=== PATIENT | male | born 1955 | race Caucasian/White ===

== ENCOUNTER 2018-09-17 11:31 | Observation (INO) ==
[2018-09-17] MEDS ORDERED: NS 500 ML IV ONE (11:53)
[2018-09-17 12:17] LABS: BASO# 0.03 X1000 (0.0-0.2); BASO% 0.3 % (0.0-0.8); EOS# 0.05 X1000 (0.0-0.7); EOS% 0.5 % (0.0-10.0); HEMATOCRIT 39.5 % (42.0-52.0); HEMOGLOBIN 13.3 g/dL (14.0-18.0); IMM GRAN# 0.04 X1000 (0.0-0.04); IMM GRAN% 0.4 % (0.0-0.5); LYMPH# 1.39 X1000 (1.2-3.4); LYMPH% 12.6 % (20.5-51.1); MCH 30.4 PG (27-31); MCHC 33.7 g/dL (33-37); MCV 90.2 FL (81-99); MONO# 0.96 X1000 (0.11-0.59); MONO% 8.7 % (1.7-9.3); MPV 9.9 FL (7.4-10.4); NEUT# 8.59 X1000 (1.4-6.5); NEUT% 77.5 % (42.2-75.2); PLT 255 X1000 (130-400); RBC 4.38 XMIL (4.7-6.1); WBC 11.06 X1000 (4.8-10.8)
[2018-09-17 12:36] LABS: ALBUMIN 3.7 g/dL (3.5-5.0); CALCIUM 9.2 mg/dL (8.8-10.2); CREATININE 1.6 mg/dL (0.7-1.2); POTASSIUM 5.2 mmol/L (3.5-5.1); TOTAL BILIRUBIN 0.3 mg/dL (0.20-1.00)
--- NOTE | 2018-09-17 13:21 | Diag Imaging Result Doc PS360 ---
EXAM: CHEST-2 VIEWS HISTORY: short of breath TECHNIQUE: Chest two views COMPARISON: 09/09/2015 FINDINGS: The lungs are well expanded. The heart is not enlarged. The vessels are not distended. There are no infiltrates. No pleural effusions. Scattered granuloma. IMPRESSION: No acute abnormality. Electronically signed by Dawit Sepulveda 09/17/2018 1:19 PM
[2018-09-17 14:15] LABS: URINE SOURCE CLEAN CATCH
[2018-09-17 14:20] LABS: BILIRUBIN URINE 2+ (NEGATIVE); BLOOD URINE NEGATIVE (NEGATIVE); KETONE URINE 1+(Small) mg/dL (NEGATIVE); LEUKOCYTES URINE 1+ (NEGATIVE); NITRITE URINE NEGATIVE (NEGATIVE); PROTEIN URINE 1+(30 mg/dL) mg/dL (NEGATIVE); SP GRAVITY URINE 1.025; UROBILINOGEN URINE 1 mg/dL
[2018-09-17 14:21] LABS: CLARITY CLEAR (CLEAR); COLOR YELLOW
--- NOTE | 2018-09-17 14:47 | Diag Imaging Result Doc PS360 ---
EXAM: CT ANGIOGRM PULMONARY ARTERIES HISTORY: difficulty breathing TECHNIQUE: Emergent CT of the chest with intravenous contrast. Pulmonary arterial protocol with MIP images. COMPARISON: 05/21/2016 FINDINGS: Normal opacification of the pulmonary arteries and their branches. No pulmonary emboli. No thoracic aortic aneurysm or dissection. No cardiomegaly. No pleural effusions. There are small calcified mediastinal and hilar nodes with multiple scattered granuloma. No lung mass. No bronchiectasis. No infiltrates. There are old rib fractures. IMPRESSION: There is evidence of a prior granulomatous infection. This exam was performed using automated exposure control, adjustment of mA or kV according to patient size, and/or use of iterative reconstruction technique. Electronically signed by Dawit Sepulveda 09/17/2018 2:45 PM
[2018-09-17] MEDS ORDERED: NS 1,000 ML IV ONE (15:16)
[2018-09-17] MEDS ORDERED: TYLENOL PO ONE (15:37)
--- NOTE | 2018-09-17 16:03 | PROVIDER DOCUMENTATION ---
This chart was entered by Clayton Sellers Scribe, acting as scribe for Aurelio Ayers MD. HPI-General Adult - General Chief Complaint: Chest Pain Stated Complaint: CHEST PAINS Time Seen by Provider: 09/17/18 11:39 Source: patient Allergies/Adverse Reactions: Patient Allergies Allergy/AdvReac Type Severity Reaction Status Date / Time codeine Allergy HIVES Verified 04/18/17 19:12 Sulfa (Sulfonamide Allergy ANAPHYLAXIS Verified 04/18/17 19:11 Antibiotics) Home Medications: Home Medication List Medication Instructions Recorded Confirmed Last Taken Type Insulin NPH Hum/Reg Insulin Hm 20 units SQ BID 05/27/18 08/18/18 08/17/18 History [Humulin 70/30 Kwikpen] Metformin [Glucophage] 1,000 mg PO BID 05/27/18 08/18/18 08/17/18 History Ursodiol 1 cap PO DAILY 05/27/18 08/18/18 08/17/18 History Acetaminophen/Diphenhydramine 1 ea PO Q6HR PRN #14 tab 05/28/18 08/18/18 08/17/18 Rx [Percogesic 325-12.5 mg Tablet] - History of Present Illness -Gen Adult Nature of Presenting Problems: Pt is a 62 y/o M present to the ED with right arm numbness, neck and headache with some chest pain that began today at 9am. He reports a mild SC 3 years ago prior to his gastric bypass. He reports a 200lb weight loss since his gastric bypass. Location of Pain/Injury: reports: neck, upper extremity (right arm numbness) Quality of Pain: reports: aching Severity: reports: mild Onset/Duration: reports: this morning Timing: reports: still present Context/Activities at Onset: reports: none Modifying Factors: improves with: nothing Associated Symptoms: reports: back/neck pain, chest pain, headaches. denies: dizziness, fever/chills, sinus congestion/drainage, shortness of breath Similar Symptoms Previously?: No Recently seen or treated by another doctor?: No Review of Systems - Adult - REVIEW OF SYSTEMS - ADULT Constitutional: denies: chills, fever Eyes: reports: no symptoms reported Ears, Nose, Mouth & Throat: denies: ear pain, throat pain Cardiovascular: reports: chest pain. denies: edema, palpitations Respiratory: denies: cough, shortness of breath, wheezing Gastrointestinal: denies: abdominal pain, nausea, vomiting Genitourinary: denies: dysuria, discharge Musculoskeletal: reports: neck pain. denies: back pain Integumentary: reports: no symptoms reported Neurological: reports: headache/migraines. denies: dizziness/vertigo Psychiatric: reports: no symptoms reported Endocrine: reports: no symptoms reported Hematologic/Lymphatic: reports: no symptoms reported Allergic/Immunologic: reports: no symptoms reported All Other Systems: Reviewed and Negative Past History - Adult - PAST MEDICAL HISTORY-ADULT Review of Records: reports: Old Records Reviewed, Nursing Assessment Review, Medications Reviewed Major Childhood Illnesses: reports: denies history Cardiovascular: reports: HTN, hyperlipidemia, SC Respiratory: reports: denies history Gastrointestinal: reports: denies history Obstetrical/Gynecological: reports: denies history Genitourinary: reports: denies history Musculoskeletal: reports: denies history Neurological: reports: denies history Psychiatric: reports: denies history Endocrine/Immune: reports: Diabetes Other Conditions: reports: denies history - PRIOR SURGERIES/PROCEDURES Surgical/Procedure History: reports: gastric bypass - IMMUNIZATION STATUS Childhood Immunizations: See Nurse Assessment Flu Vaccine: See Nurse Assessment - FAMILY HISTORY Family History: reviewed, not pertinent - SOCIAL HISTORY Smoking: non-smoker Living Situation: family Physical Exam-General - PHYSICAL EXAM-ADULT Initial Vital Signs Reviewed: Yes - CONSTITUTIONAL General Appearance: alert, no apparent distress, obese (morbid) - EYES Eyes: PERRL/EOMI, pink conjunctivae - HEAD, EARS, NOSE, MOUTH & THROAT HENMT: moist mucous membranes, normal ENT inspection, pharynx normal - NECK Neck: non-tender, full range of motion, supple, normal inspection - RESPIRATORY Respiratory: lungs clear, normal breath sounds, no pleuratic chest pain, no respiratory distress, no accessory muscle use - CARDIOVASCULAR Cardiovascular: normal peripheral pulses, regular rate, rhythm - GASTROINTESTINAL (ABDOMEN) Abdominal Exam: normal bowel sounds, soft, tenderness (diffuse tenderness) - MUSCULOSKELETAL Back Exam: normal inspection, no CVA tenderness, no vertebral tenderness Extremity: normal range of motion, non-tender, normal gait, normal inspection - SKIN Integumentary: normal color, normal turgor, warm/dry - NEUROLOGIC Neurologic: grossly normal, no motor/sensory deficits. negative: aphasia, facial droop, focal weakness, motor weakness - PSYCHIATRIC Psych/Mental Status: normal mood/affect, normal thought content, normal thought process, oriented x 3 Progress - PLAN OF CARE/RESULTS Progress/Plan/Lab Results: Vital Signs - 8 hr 09/17/18 11:36 09/17/18 11:39 Pulse Rate 89 88 Respiratory Rate 18 18 Blood Pressure 80/50 O2 Sat by Pulse Oximetry 90 L Result Diagrams: 09/17/18 12:05 09/17/18 12:05 - EKG 1 Time of EKG reading by physician:: 11:37 EKG Read and Signed by:: Aurelio Ayers EKG Interpretation (*Must complete 3 of following elements*): Abnormal Rate: 92 Rhythm: NSR Anita: left QRS: RBB - XRAY 1 XRAY: Bilateral XRAY Study: Chest Impression: Normal (EXAM: CHEST-2 VIEWS HISTORY: short of breath TECHNIQUE: Chest two views COMPARISON: 09/09/2015 FINDINGS: The lungs are well expanded. The heart is not enlarged. The vessels are not distended. There are no infiltrates. No pleural effusions. Scattered granuloma. IMPRESSION: No acute abnormality.) - CT/MRI 1 CT Study: Angiogram Impression: Normal (Signed EXAM: CT ANGIOGRM PULMONARY ARTERIES HISTORY: difficulty breathing TECHNIQUE: Emergent CT of the chest with intravenous contrast. Pulmonary arterial protocol with MIP images. COMPARISON: 05/21/2016 FINDINGS: Normal opacification of the pulmonary arteries and their branches. No pulmonary emboli. No thoracic aortic aneurysm or dissection. No cardiomegaly. No pleural effusions. There are small calcified mediastinal and hilar nodes with multiple scattered granuloma. No lung mass. No bronchiectasis. No infiltrates. There are old rib fractures. IMPRESSION: There is evidence of a prior granulomatous infection. This exam was performed using automated exposure control, adjustment of mA or kV according to patient size, and/or use of iterative reconstruction technique. Electronically signed by Dawit Sepulveda 09/17/2018 2:45 PM) - CONSULTS/PCP/HOSPITALIST Notification #1 *Consult/PCP/Hospitalist*: Hospitalist- Dr Greco Time Discussed: 15:15 Reason/Comments: admission Consult Disposition: Will see in ED Departure - Departure Date of Disposition Decision: 09/17/18 Time of Disposition Decision: 15:19 DIAGNOSIS: Renal insufficiency Chest pain Qualifiers: Chest pain type: unspecified Qualified Code(s): R07.9 - Chest pain, unspecified Disposition: ADMITTED INPATIENT 09 Certified Medical Emergency: Emergent Condition: Serious - Critical Care Note This patient required my direct & personal management of CC.: No Attestation - Physician/ FILIBERTO Attestation Patient care was provided by Advanced Practice Provider:: No The physician spent face to face time with patient:: Yes Advanced Practice Provider documentation review:: Supervising physician onsite and consulted in the evaluation and care of this patient. The physician did have a face to face encounter with the patient. This chart was documented by the indicated scribe, (Clayton Sellers Scribe) and accurately reflects the services I performed and decisions made by me, Aurelio Ayers MD, as attested by the provider's signature.
[2018-09-17] MEDS ORDERED: ZOFRAN IV PRN (16:26)
[2018-09-17] MEDS ORDERED: TYLENOL PO PRN (16:26)
[2018-09-17] MEDS: NS 1,000 ML IV SCH (16:53)
--- NOTE | 2018-09-17 18:16 | EKG Report ---
Test Performed on : 09/17/2018 11:37:39 AM Test Reason : Chest pain Blood Pressure : / mmHG Vent. Rate : 092 BPM Atrial Rate : 092 BPM P-R Int : 156 ms QRS Dur : 124 ms QT Int : 392 ms P-R-T Axes : 028 -72 033 degrees QTc Int : 484 ms Normal sinus rhythm. Left axis deviation Right bundle branch block Abnormal ECG When compared with ECG of 12-SEP-2015 01:51, Right bundle branch block is now present Criteria for Septal infarct are no longer present Unconfirmed Result
[2018-09-17] MEDS: HUMALOG (PARKWAY) SUBQ SCH ×2 (19:01→21:57)
[2018-09-17] MEDS: MORPHINE IV PRN (21:57)
--- NOTE | 2018-09-18 00:33 | HISTORY AND PHYSICAL ---
PRIMARY CARE PHYSICIAN: Dr. Menjivar. CHIEF COMPLAINT: Chest pain. HISTORY OF PRESENTING ILLNESS: This is a 62-year-old male who presents to [facility] ER with complaints of chest pain that began around 9 a.m. this morning. States it radiated from the center of his chest, down both arms, in his neck, and through to his shoulder blades. He had some associated nausea, diaphoresis. States he had an PR that was mild about 3 years ago. No stents were required. He has not had a stress test, but states that these symptoms feel very similar to what he had in the past. His workup in the emergency room showed a 1st set of cardiac enzymes with a troponin of 0.042. His BUN is 38 and creatinine of 1.6. He is mildly dehydrated with a little acute kidney injury. Urinalysis was negative. He had a little bump in his D-dimer at 0.77. We did a pulmonary arteriogram that showed only evidence of a prior granulomatous infection, but no pulmonary emboli, so he will be admitted for further evaluation and treatment. PAST MEDICAL HISTORY: Hypertension, hyperlipidemia, PR, and diabetes. PAST SURGICAL HISTORY: Gastric bypass, in which he has lost about 200 pounds since the surgery. FAMILY HISTORY: Reviewed and noncontributory. SOCIAL HISTORY: Currently lives with family. Denies any tobacco, alcohol, or illicit drug use. ALLERGIES: To codeine and sulfa. HOME MEDICATIONS: A current list needs to be obtained, reviewed, reconciled, and restarted as appropriate. We will place an order for nursing to update and confirm home medications. LABORATORY DATA: Showed a white blood cell count of 11.06, hemoglobin 13.3, hematocrit 39.5, platelets 255,000. D-dimer of 0.77. Sodium 136, potassium 5.2, chloride 100, CO2 of 22, BUN of 38, creatinine 1.6, glucose 254, lipase 14, troponin 0.042. Plasma lactate of 2.5. Urinalysis is negative. Chest x-ray showed no acute abnormality. Pulmonary arteriogram showed no evidence of prior granulomatous infection. REVIEW OF SYSTEMS: He denied any fever, chills, blurred vision, dizziness. He had substernal chest pain that radiated to his bilateral arms, neck and through to his shoulder blades, with some associated diaphoresis, nausea, shortness of breath. Denied any abdominal pain, constipation, diarrhea, burning or hurting with urination. PHYSICAL EXAMINATION: VITAL SIGNS: On arrival, his pulse was 89, respirations 18, blood pressure on arrival was 80/50, saturating 90% on room air. Currently, his blood pressure is up to 112/55, and he is saturating 97% on room air. GENERAL: This is a 62-year-old male, who is lying in the bed and answers questions appropriately. HEENT: Normocephalic, atraumatic. Normal ENT inspection. Oropharynx and nares are clear. Eyes: Pupils are equal, round, and reactive to light and accommodation. Extraocular movements are intact. NECK: Normal inspection. Normal range of motion. LUNGS: Clear to auscultation bilaterally with equal lung expansion and chest wall movement. HEART: With regular rate and rhythm. No murmurs, rubs, or gallops. ABDOMEN: Soft, nontender, nondistended. Bowel sounds are present x4 quadrants. MUSCULOSKELETAL: He has 5/5 strength x4 extremities. NEUROLOGICAL: The cranial nerves 2-12 appear grossly intact. ASSESSMENT: 1. Chest pain. 2. Hypertension. 3. Acute kidney injury. 4. Hypoxemia. PLAN: He will be admitted to the medical unit. Placed on telemetry. O2 per protocol. Placed on a diabetic diet. We will do serial cardiac enzymes and troponin's q.[address] on normal saline at 100 mL/h. Pattern blood sugars with sliding scale insulin, Zofran 4 mg IV q.4 hours p.r.n., Tylenol 650 mg p.o. q.6 hours p.r.n. We need to update and confirm home medications. He was ruled out for a PE. Further orders after seen by attending. Dictated by ANDREW Bernabe for Stephen Greco MD cc: ANDREW Bernabe MD Hiteshri S. Bhavsar, MD
[2018-09-18] MEDS: NS 1,000 ML IV SCH ×2 (01:39→11:56)
[2018-09-18 01:58] LABS: UR PROT RANDOM 8.1 mg/dL
--- NOTE | 2018-09-18 05:45 | PROGRESS NOTE ---
DATE: 09/18/2018 SUBJECTIVE: The patient presented with chest pain and also some numbness. I think there is some intellectual impairment. He is also status post gastric bypass. PHYSICAL EXAM: Lungs: No rales. Cardiovascular: Regular rate and rhythm. General: He has some degree of renal failure as well. PROBLEM LIST: 1. Chest pain. We will do serial enzymes and follow. Possibly obtain echo. 2. Acute kidney injury. Continue hydration. We will continue medications and follow. 3. Diabetes. Continue sliding scale, check A1c and follow closely. 4. Hypertension. Continue his regular medications and follow. This was a [id number] encounter note with ANDREW Bernabe. cc: Stephen Greco MD
[2018-09-18] MEDS: HUMALOG (PARKWAY) SUBQ SCH ×5 (05:58→21:08)
[2018-09-18] MEDS: MORPHINE IV PRN ×3 (06:14→22:58)
[2018-09-18 07:34] LABS: BASO# 0.03 X1000 (0.0-0.2); BASO% 0.5 % (0.0-0.8); EOS# 0.13 X1000 (0.0-0.7); EOS% 2.1 % (0.0-10.0); HEMATOCRIT 36.6 % (42.0-52.0); IMM GRAN# 0.01 X1000 (0.0-0.04); IMM GRAN% 0.2 % (0.0-0.5); LYMPH# 1.51 X1000 (1.2-3.4); LYMPH% 24.1 % (20.5-51.1); MCH 29.6 PG (27-31); MCHC 32.8 g/dL (33-37); MCV 90.4 FL (81-99); MONO# 0.58 X1000 (0.11-0.59); MONO% 9.3 % (1.7-9.3); NEUT% 63.8 % (42.2-75.2); PLT 244 X1000 (130-400); RBC 4.05 XMIL (4.7-6.1); RDW 12.9 % (11.5-14.5); WBC 6.26 X1000 (4.8-10.8)
[2018-09-18 07:49] LABS: AGAP 11; BUN 34 mg/dL (8-22); CALCIUM 8.4 mg/dL (8.8-10.2); CHLORIDE 102 mmol/L (98-107); COSMO 284; CREATININE 0.8 mg/dL (0.7-1.2); ESTIMATED GFR > 60; GLUCOSE 179 mg/dL (70-104); POTASSIUM 4.6 mmol/L (3.5-5.1); SODIUM 136 mmol/L (136-145); TCO2 24 mmol/L (25-35)
[2018-09-18 07:59] LABS: HEMOGLOBIN A1C 9.4 % (4.8-6.0)
[2018-09-18] MEDS: HEPARIN SUBQ SCH ×2 (08:25→21:08)
--- NOTE | 2018-09-18 09:10 | Diag Imaging Result Doc PS360 ---
EXAM: US RENAL 2 (RETROPER) COMPLETE HISTORY: armando/arf TECHNIQUE: Renal ultrasound COMPARISON: None. FINDINGS: The right kidney measures 10.8 x 4.7 x 5.0 cm. Normal renal echotexture and cortical thickness. No renal stone or hydronephrosis. No renal mass. The lower pole is partly obscured. The left kidney measures 11.6 x 5.9 x 5.6 cm. Normal renal echotexture and cortical thickness. No renal stone or hydronephrosis. No renal mass. The urinary bladder is not distended. IMPRESSION: Normal renal ultrasound. Electronically signed by Dawit Sepulveda 09/18/2018 9:08 AM
[2018-09-18] MEDS: GLUCOPHAGE PO SCH (16:23)
--- NOTE | 2018-09-18 17:36 | PROGRESS NOTE ---
DATE: 09/18/2018 SUBJECTIVE: Patient has no major complaints. OBJECTIVE: Blood pressure is 123/58, heart rate of 72, respiratory 18, temperature 98.8 degrees, 98% on 1 L.Cardiovascular: Regular rate and rhythm. Pulmonary: Bilateral breath sounds clear to auscultation. GI: Was soft, nontender, nondistended. Bowel sounds are positive. Extremities: No clubbing or cyanosis. Lymphatic: No peripheral edema. Neurological: Nonfocal. LABORATORY DATA: He has ruled out. White count 6, hemoglobin and hematocrit 12 and 36, glucose 237. A1c is 9.4. PROBLEM LIST: 1. Chest pain which is very atypical and I think he has some degree of intellectual impairment so I am not sure how accurate is but in any case patient is stable. He has got some old rib fractures, has no white count, they did a pulmonary angiogram which was negative, in any case we will do a echocardiogram and get a Cardiology opinion and follow. 2. Diabetes, continue follow blood sugars. 3. He is on Actigall. Unclear why he is on that, liver enzymes are okay, will get a right upper quadrant tomorrow follow. cc: Stephen Greco MD
[2018-09-18] MEDS: IMDUR PO SCH (19:03)
[2018-09-18] MEDS: ACTIGALL PO SCH (21:08)
[2018-09-19] MEDS: HUMALOG (PARKWAY) SUBQ SCH ×3 (06:14→16:48)
[2018-09-19 07:22] LABS: BASO# 0.02 X1000 (0.0-0.2); BASO% 0.4 % (0.0-0.8); EOS# 0.12 X1000 (0.0-0.7); EOS% 2.3 % (0.0-10.0); HEMOGLOBIN 10.9 g/dL (14.0-18.0); IMM GRAN# 0.01 X1000 (0.0-0.04); IMM GRAN% 0.2 % (0.0-0.5); LYMPH# 1.35 X1000 (1.2-3.4); LYMPH% 26.1 % (20.5-51.1); MCH 29.1 PG (27-31); MCHC 32.1 g/dL (33-37); MCV 90.7 FL (81-99); MONO% 7.7 % (1.7-9.3); MPV 9.9 FL (7.4-10.4); NEUT# 3.28 X1000 (1.4-6.5); NEUT% 63.3 % (42.2-75.2); PLT 228 X1000 (130-400); RBC 3.75 XMIL (4.7-6.1); RDW 12.9 % (11.5-14.5); WBC 5.18 X1000 (4.8-10.8)
[2018-09-19 07:30] LABS: AGAP 7; BUN 24 mg/dL (8-22); CALCIUM 8.3 mg/dL (8.8-10.2); CHLORIDE 101 mmol/L (98-107); COSMO 279; CREATININE 0.7 mg/dL (0.7-1.2); ESTIMATED GFR > 60; GLUCOSE 214 mg/dL (70-104); POTASSIUM 4.8 mmol/L (3.5-5.1); SODIUM 134 mmol/L (136-145); TCO2 26 mmol/L (25-35)
[2018-09-19] MEDS: NS 1,000 ML IV SCH (07:35)
[2018-09-19] MEDS: IMDUR PO SCH (08:38)
[2018-09-19] MEDS: GLUCOPHAGE PO SCH ×2 (08:38→16:48)
[2018-09-19] MEDS: HEPARIN SUBQ SCH (08:39)
[2018-09-19] MEDS: MORPHINE IV PRN ×2 (08:39→14:20)
[2018-09-19] MEDS: ACTIGALL PO SCH (08:40)
[2018-09-19] MEDS ORDERED: PRINIVIL PO SCH (09:00)
[2018-09-19] MEDS: CARAFATE PO SCH ×2 (11:19→15:24)
[2018-09-19] MEDS ORDERED: NS 1,000 ML IV SCH (14:19)
[2018-09-19] MEDS ORDERED: HEPARIN 25,000 UNITS/D5W 25,000 UNIT/250 ML IV.SOLN IV SCH (14:30)
[2018-09-19 14:42] VITALS: BP 124/64
--- NOTE | 2018-09-19 14:43 | EKG Report ---
Test Performed on : 09/19/2018 2:38:00 PM Test Reason : chest pain Blood Pressure : / mmHG Vent. Rate : 072 BPM Atrial Rate : 072 BPM P-R Int : 172 ms QRS Dur : 140 ms QT Int : 406 ms P-R-T Axes : 028 -58 014 degrees QTc Int : 444 ms Normal sinus rhythm. Left axis deviation Right bundle branch block Abnormal ECG When compared with ECG of 17-SEP-2018 11:37, (Unconfirmed) No significant change was found Unconfirmed Result
--- NOTE | 2018-09-19 14:52 | PROGRESS NOTE ---
DATE: 09/19/2018 SUBJECTIVE: Patient notes that he was told he had a slight WY in the past but has not gone through any workup. States he is still having chest pain. Notes that it radiates to both arms and both legs. Denies any nausea/vomiting. Denies any GI symptoms or symptoms. Denies any fevers or chills. PHYSICAL EXAMINATION: Vital Signs: Temperature 97.1 degrees, pulse 65, respiratory 18, BP 110/76. General: Patient is awake, currently in no distress. HEENT: Normocephalic, atraumatic. DICKSON. Neck: Supple. No JVD. CARDIOVASCULAR: Regular rate. Chest: Clear, nonlabored. Abdomen: Soft, nondistended, nontender. Extremities: Moves all extremities. Neurologic: No focal changes. Patient is awake, alert, oriented. ASSESSMENT: 1. Chest pain. 2. Diabetes. PLAN: We will continue patient in the hospital. At this point, we will have to complete cardiac workup to include a stress test as he states he has had an WY in the past but has had no workup. Unsure if this was a failure on his part to follow up or see in fact did have some workup, and he simply does not remember. We will try Carafate and see if this helps. cc: Jasen Badillo MD
[2018-09-19] MEDS ORDERED: ASPIRIN PO STA (14:56)
--- NOTE | 2018-09-19 15:18 | CARDIOLOGY CONSULTATION ---
DATE: 09/19/2018 CHIEF COMPLAINT: Chest pain. HISTORY OF PRESENT ILLNESS: A 62-year-old male presented to the hospital on 09/17/2018 at about 11:30 in the morning, stating that he was with his brother in [place] buying some groceries, and all of the sudden, he started having numbness in the right hand. This progressed over a period of time, and he ended up coming to the emergency room. When he came to the emergency room, he said that he was having chest discomfort. The chest discomfort continued basically without interruption throughout the course of a few hours. It seemed to wax and wane. They put a consultation for me to see him this morning. I was contacted through my service at 8:12 in the morning, and in the call, they said that the patient was having recurrent chest pain. Initially, his EKG showed sinus rhythm with right bundle branch block. His troponin levels where in the pope zone. The first one was 0.042, the next one 0.027, the last one 0.020. The patient's BUN and creatinine were elevated at the time of arrival. BUN was 38, creatinine 1.6. Subsequently, the BUN has improved to 24, creatinine is down to 0.7. The patient continues to have chest pain as we speak. The patient denies dyspnea. His brother is by the bedside. PAST MEDICAL HISTORY: Positive for diabetes mellitus for many years. He used to be on pills, and at some point, he was switch over to insulin. He has hypertension. He has hyperlipidemia. The patient used to be morbidly obese. He weighed up to 440 pounds. PAST SURGICAL HISTORY: Positive for gastric bypass surgery performed by Dr. Adam Morris a few years ago. He has lost nearly 200 pounds since the surgery. FAMILY HISTORY: Mother had a stroke. Father had a heart attack. SOCIAL HISTORY: He has never been . He is on disability. Lives by himself. Not a smoker or drinker. REVIEW OF SYSTEMS: The patient has difficulty getting around. He has to walk with a walker. His legs do not support him properly. He probably has polyneuropathy. He has had some intermittent episodes of chest pain, short lasting, in the past. HOME MEDICATIONS: Included: 1. Metformin 1000 twice a day. 2. Flomax 1 capsule at bedtime. 3 .Lisinopril 10 mg daily. 4. Calcium carbonate 1 capsule daily. 5. Insulin 70/30 as directed. (please look at MAR for details) ALLERGIES: Codeine and sulfa. PHYSICAL EXAMINATION: Vital Signs: Blood pressure 110/76, temperature is 97.8 degrees, pulse 65, respirations 18. His weight standing up on a standing scale is 278.6 pounds. General: He is awake, alert, in no distress. HEENT: Unremarkable. Chest: Clear to auscultation and percussion. Heart: Heart sounds are regular and rhythmic. I do not hear a gallop or murmur. Abdomen: Obese, nontender. Extremities: Palpable pulses. No edema. Neurologic: Follows commands. Moves all 4 extremities. LABORATORY DATA: Sodium 134, potassium 4.8, BUN 24, creatinine 0.7, glucose 257. Hemoglobin is 10.9, hematocrit 34%. IMPRESSION: 1. A patient who presented with chest pain, persistent, likely to represent unstable angina. CT scan of the chest shows dense calcification of the three coronary arteries (evidence of coronary atherosclerosis). He has had a previous myocardial infarction in the past, and he does have an abnormal resting electrocardiogram. We have just repeated the electrocardiogram. It shows no acute ST-segment shifts. However, there is a right bundle branch block pattern. 2. History of being morbidly obese. Still obese with a body mass index of 44. 3. Diabetes mellitus type 2. 4. Hypertension. RECOMMENDATIONS: At this point in time, we will initiate aspirin, heparin IV. [facility] patient for management of unstable angina pectoris. The patient is going to require diagnostic cardiac catheterization for a definitive diagnosis. Will be very glad to follow the patient upon discharge from [place]. cc: Alexys Gonzalez MD [facility]
--- NOTE | 2018-09-20 17:28 | ECHO REPORT ---
ORDER DATE: 09/19/2018 INTERPRETING PHYSICIAN: Alexys Gonzalez MD INDICATION: A 62-year-old male with chest pain, hypertension, and abnormal troponins. M-MODE MEASUREMENTS: Left ventricle end diastole: 5.3 cm. Left ventricle end systole: 4.1 cm. Posterior wall: 1.1 cm. Interventricular septum: 1.1 cm. Left atrium: 4.3 cm. SUMMARY OF 2-DIMENSIONAL IMAGING: This study is difficult. The patient is morbidly obese. 1. The left ventricular function appears to be excellent with an ejection fraction of 70% to 75%. No wall motion abnormality is noted. 2. There is dense calcification of the mitral annulus. 3. The aortic valve shows a mild degree of sclerosis without stenosis. Color flow mapping shows no regurgitation. 4. Pulse wave Doppler of mitral inflow shows reversal of the E and the A ratio. Ratio is 0.7. 5. Tissue Doppler of septal and lateral mitral annulus averages 7 cm. 6. There is no diastolic dysfunction. 7. The pulmonic valve appears to be grossly normal. 8. The tricuspid valve also appears to be grossly unremarkable. 9. Pulmonary pressure cannot be calculated in this case. There is no significant jet of tricuspid regurgitation. 10.There is no pericardial effusion and no sign of thrombus. 11.The right-sided chambers did not appear to be dilated. Clinical correlation is recommended. cc: MD Jasen Tinsley MD
--- NOTE | 2018-09-21 00:47 | DISCHARGE SUMMARY ---
ADMISSION DATE: 09/17/2018 DISCHARGE DATE: 09/19/2018 DISCHARGE DIAGNOSES: 1. Chest pain. 2. Diabetes. CONSULTATIONS: Cardiology. PROCEDURES: CTA. BRIEF HOSPITAL COURSE: Patient is a 62-year-old male who is a very difficult historian. He was admitted to the hospital, placed on rule out HI protocol. Thankfully, all of his enzymes were negative. On discharge, patient thankfully has had an uneventful hospital course. However, Cardiology felt as though his CTA was abnormal and, therefore, have transferred him to [facility] for further management and a left heart catheterization. cc: Jasen Badillo MD
== END 2018-09-19 17:15 | disposition short-term general hospital (02) ==
LOC: P.MEDSURG 11:31 → P.ED 11:31 → SUATTDRO 15:43
PROVIDERS: ATTEND Family Medicine
CPT/HCPCS: 71020; 71046; 71275; 76770; 80048; 80053; 81003; 82550; 82570; 82948; 83036; 83605; 83690; 84156; 84300; 84484; 85025; 85379; 87040; 93005; 93306; 94760; 94761; 96360; 99285; A9270; J1644; J1815; J2270; J2405; J7030; J7040; Q9967; XXXXX

== ENCOUNTER 2018-09-23 10:20 | Inpatient (IN) ==
[2018-09-23] MEDS ORDERED: NS 250 ML IV ONE (10:24)
[2018-09-23 10:44] LABS: BASO# 0.02 X1000 (0.0-0.2); BASO% 0.2 % (0.0-0.8); EOS# 0.09 X1000 (0.0-0.7); HEMATOCRIT 39.4 % (42.0-52.0); HEMOGLOBIN 13.1 g/dL (14.0-18.0); IMM GRAN# 0.02 X1000 (0.0-0.04); IMM GRAN% 0.2 % (0.0-0.5); LYMPH# 1.45 X1000 (1.2-3.4); LYMPH% 15.7 % (20.5-51.1); MCH 29.4 PG (27-31); MCHC 33.2 g/dL (33-37); MCV 88.5 FL (81-99); MONO# 0.84 X1000 (0.11-0.59); MONO% 9.1 % (1.7-9.3); MPV 10.1 FL (7.4-10.4); NEUT% 73.8 % (42.2-75.2); PLT 252 X1000 (130-400); RBC 4.45 XMIL (4.7-6.1); WBC 9.22 X1000 (4.8-10.8)
[2018-09-23 10:55] LABS: INR 0.89; PROTIME 12.5 Seconds (11.0-16.0)
[2018-09-23 10:56] LABS: PTT 28.5 Seconds (22.3-41.8)
[2018-09-23 11:12] LABS: AGAP 15; ALBUMIN 3.8 g/dL (3.5-5.0); ALKALINE PHOSPHATASE 107 U/L (32-122); BUN 27 mg/dL (8-22); CALCIUM 9.1 mg/dL (8.8-10.2); CHLORIDE 97 mmol/L (98-107); COSMO 282; CREATININE 0.8 mg/dL (0.7-1.2); ESTIMATED GFR > 60; GLUCOSE 285 mg/dL (70-104); GOT 18 U/L (10-34); GPT 14 U/L (10-44); SODIUM 133 mmol/L (136-145); TCO2 21 mmol/L (25-35); TOTAL PROTEIN 6.6 g/dL (6.3-8.3)
--- NOTE | 2018-09-23 11:14 | Diag Imaging Result Doc PS360 ---
EXAM: CHEST-1 VIEW HISTORY: CP TECHNIQUE: Chest single view COMPARISON: 09/17/2018 FINDINGS: Poor inspiratory effort. The heart is not enlarged. The vessels are not distended. There are no infiltrates. No effusion identified. Prominent arthritis to each shoulder. IMPRESSION: No acute abnormality. Electronically signed by Dawit Sepulveda 09/23/2018 11:12 AM
--- NOTE | 2018-09-23 11:25 | EKG Report ---
Test Performed on : 09/23/2018 10:15:53 AM Test Reason : CP Blood Pressure : / mmHG Vent. Rate : 107 BPM Atrial Rate : 107 BPM P-R Int : 158 ms QRS Dur : 118 ms QT Int : 362 ms P-R-T Axes : 113 -87 045 degrees QTc Int : 483 ms Sinus tachycardia. Left axis deviation Pulmonary disease pattern Right bundle branch block Abnormal ECG When compared with ECG of 19-SEP-2018 14:38, (Unconfirmed) Vent. rate has increased BY 35 BPM Questionable change in QRS duration Unconfirmed Result
--- NOTE | 2018-09-23 12:30 | PROVIDER DOCUMENTATION ---
This chart was entered by Aurea Esquivel Scribe, acting as scribe for Hemanth Randhawa MD. HPI-Chest Pain - General Chief Complaint: Chest Pain Stated Complaint: DIZZINESS/ CHEST PAIN Time Seen by Provider: 09/23/18 10:21 Source: patient Allergies/Adverse Reactions: Patient Allergies Allergy/AdvReac Type Severity Reaction Status Date / Time codeine Allergy HIVES Verified 04/18/17 19:12 Sulfa (Sulfonamide Allergy ANAPHYLAXIS Verified 04/18/17 19:11 Antibiotics) Home Medications: Home Medication List Medication Instructions Recorded Confirmed Last Taken Type Insulin NPH Hum/Reg Insulin Hm See Protocol SQ DIRECTED 05/27/18 09/23/18 08/17/18 History [Humulin 70/30 Kwikpen] Metformin [Glucophage] 1,000 mg PO BID 05/27/18 09/23/18 08/17/18 History Ursodiol 1 cap PO BID 05/27/18 09/23/18 08/17/18 History Calcium Carbonate/Vitamin D3 1 cap PO DAILY 09/18/18 09/23/18 Unknown History [Calcium 600-Vit D3 800 Tablet] Lisinopril 10 mg PO DAILY 09/18/18 09/23/18 Unknown History Tamsulosin [Flomax] 1 cap PO HS 09/18/18 09/23/18 Unknown History - History of Present Illness-CP Nature of Presenting Problem: Patient is a 62 year old male who presents to the ED via EMS with chest pain that radiates to lower back. Patient states lightheadedness, shortness of breath, blurred vision, headache, palpitations, and right hand numbness associated with pain. States symptoms started 1 hour prior to arrival. Denies nausea and vomiting. Location: reports: central Chest Pain Radiation: reports: back (lower) Quality of Pain: reports: sharp Severity in ED: mild Onset/Duration: 1 hour ago Timing: still present Context/Activities at Onset: reports: light activity Associated Symptoms: reports: back pain, headache, shortness of breath Nitro Today/Relief: 0.4 mg x 1, provided by EMS, mild relief Aspirin Treatment Today: 81 mg x 4, provided by EMS Similar Symptoms Previously?: Yes Recently Seen Here or By Another Healthcare Provider: Yes Review of Systems - Adult - REVIEW OF SYSTEMS - ADULT Constitutional: reports: no symptoms reported. denies: chills, fever, fatique Eyes: reports: see HPI, blurred vision. denies: decreased vision, double vision, redness Ears, Nose, Mouth & Throat: reports: no symptoms reported. denies: ear pain, nose pain, throat pain Cardiovascular: reports: see HPI, chest pain, palpitations. denies: heart mu rmur Respiratory: reports: see HPI, shortness of breath. denies: cough, wheezing Gastrointestinal: reports: no symptoms reported. denies: abdominal pain, diarrhea, nausea, vomiting Genitourinary: reports: no symptoms reported. denies: dysuria, flank pain, hematuria Musculoskeletal: reports: see HPI, back pain. denies: muscle aches, neck pain Integumentary: denies: hives, itching, rash Neurological: reports: headache/migraines (IRIZARRY), numbness (right hand), other (lightheadedness). denies: dizziness/vertigo, seizure, syncope Psychiatric: reports: no symptoms reported Endocrine: reports: no symptoms reported Hematologic/Lymphatic: reports: no symptoms reported Allergic/Immunologic: reports: no symptoms reported All Other Systems: Reviewed and Negative Past History - Adult - PAST MEDICAL HISTORY-ADULT Review of Records: reports: Nursing Assessment Review, Medications Reviewed, Social history reviewed & non-contributory. Major Childhood Illnesses: reports: denies history Cardiovascular: reports: HTN, hyperlipidemia, OR Respiratory: reports: asthma Gastrointestinal: reports: denies history Obstetrical/Gynecological: reports: denies history Genitourinary: reports: denies history Musculoskeletal: reports: denies history Neurological: reports: Seizures/Epilepsy Psychiatric: reports: denies history Endocrine/Immune: reports: Diabetes Other Conditions: reports: denies history - PRIOR SURGERIES/PROCEDURES Surgical/Procedure History: reports: reviewed, not pertinent, gastric bypass - IMMUNIZATION STATUS Childhood Immunizations: See Nurse Assessment Flu Vaccine: See Nurse Assessment - FAMILY HISTORY Family History: reviewed, not pertinent - SOCIAL HISTORY Smoking: denies Substance Use: denies Living Situation: alone Physical Exam-General - PHYSICAL EXAM-ADULT Initial Vital Signs Reviewed: Yes - CONSTITUTIONAL General Appearance: alert, no apparent distress, obese. negative: lethargic, slow to respond - EYES Eyes: PERRL/EOMI, pink conjunctivae. negative: sunken eyes - HEAD, EARS, NOSE, MOUTH & THROAT HENMT: normocephalic/atraumatic, moist mucous membranes. negative: angioedema, hearing deficit - RESPIRATORY Respiratory: chest non-tender, lungs clear, normal breath sounds. negative: crackles, rhonchi, stridor, wheezing - CARDIOVASCULAR Cardiovascular: normal peripheral pulses, tachycardia. negative: systolic murmur - GASTROINTESTINAL (ABDOMEN) Abdominal Exam: normal bowel sounds, non tender, soft. negative: guarding, rebound, hernia, mass - MUSCULOSKELETAL Back Exam: normal inspection, no vertebral tenderness. negative: ecchymosis, swelling Extremity: non-tender, normal inspection. negative: deformity, erythema - SKIN Integumentary: normal color, normal turgor, warm/dry. negative: cyanosis, ecchymosis, erythema, jaundice - NEUROLOGIC Neurologic: grossly normal. negative: aphasia, facial droop - PSYCHIATRIC Psych/Mental Status: normal mood/affect, oriented x 3. negative: anxious - HEART Score HEART Score: History: Moderately Suspicious HEART Score: ECG: Normal HEART Score: Age: 45-65 Years HEART Score: Risk Factors for Atherosclerotic Disease: > or = 3 Risk Factors or History of Atherosclerotic Disease HEART Score: Troponin: < or = Normal Limit Total HEART Score:: 4 Progress - PLAN OF CARE/RESULTS Progress/Plan/Lab Results: Vital Signs - 8 hr 09/23/18 10:16 Pulse Rate 104 H Respiratory Rate 20 Blood Pressure 92/70 O2 Sat by Pulse Oximetry 93 L Laboratory Results - last 24 hr 09/23/18 09/23/18 09/23/18 10:26 10:26 10:26 WBC RBC Hgb Hct MCV MCH MCHC RDW Std Deviation Plt Count MPV Immature Gran % (Auto) Neut % (Auto) Lymph % (Auto) [place] % (Auto) Eos % (Auto) Baso % (Auto) Immature Gran # (Auto) Neut # (Auto) Lymph # (Auto) [place] # (Auto) Eos # (Auto) Baso # (Auto) PT INR PTT (Actin FS) Sodium 133 L Potassium 5.0 Chloride 97 L Carbon Dioxide 21 L Anion Gap 15 BUN 27 H Creatinine 0.8 Estimated GFR/1.73 m2 > 60 BUN/Creatinine Ratio 34 Glucose 285 H Calculated Osmolality 282 Calcium 9.1 Total Bilirubin 0.30 AST 18 ALT 14 Alkaline Phosphatase 107 Creatine Kinase 117 Troponin T < 0.010 Xac-[id number]-Umwafgldvez Pept Total Protein 6.6 Albumin 3.8 Globulin 3.0 Albumin/Globulin Ratio 1.0 05/31/19 05/31/19 05/31/19 10:26 10:26 10:26 WBC 9.22 RBC 4.45 L Hgb 13.1 L Hct 39.4 L MCV 88.5 MCH 29.4 MCHC 33.2 RDW Std Deviation 13.0 Plt Count 252 MPV 10.1 Immature Gran % (Auto) 0.2 Neut % (Auto) 73.8 Lymph % (Auto) 15.7 L [place] % (Auto) 9.1 Eos % (Auto) 1.0 Baso % (Auto) 0.2 Immature Gran # (Auto) 0.02 Neut # (Auto) 6.80 H Lymph # (Auto) 1.45 [place] # (Auto) 0.84 H Eos # (Auto) 0.09 Baso # (Auto) 0.02 PT 12.5 INR 0.89 PTT (Actin FS) 28.5 Sodium Potassium Chloride Carbon Dioxide Anion Gap BUN Creatinine Estimated GFR/1.73 m2 BUN/Creatinine Ratio Glucose Calculated Osmolality Calcium Total Bilirubin AST ALT Alkaline Phosphatase Creatine Kinase Troponin T Iyt-[id number]-Ipwskagkpgv Pept 114 Total Protein Albumin Globulin Albumin/Globulin Ratio Orders Category Date Time Status Cardiac Monitoring DIRECTED Care 09/23/18 10:21 Active CHEST-1 VIEW [RAD] Stat Exams 09/23/18 10:21 Completed CBC WITH DIFF [HEME] Stat Lab 09/23/18 10:26 Completed CK PROFILE [SP CHEM] Stat Lab 09/23/18 10:26 Completed CMP [COMPREHENSIVE METABOLIC PANEL] [CHEM] Stat Lab 09/23/18 10:26 Completed PRO B-NATRIURETIC PEPTIDE Stat Lab 09/23/18 10:26 Completed PROTIME WITH INR [COAG] Stat Lab 09/23/18 10:26 Completed PTT [COAG] Stat Lab 09/23/18 10:26 Completed TROPONIN T Stat Lab 09/23/18 10:26 Completed 0.9% Sodium Chloride Inj [Ns] 250 ml Med 09/23/18 10:24 Discontinued IV 999 mls/hr EKG [EKG] Stat Ther 09/23/18 10:21 Draft Result Diagrams: 09/23/18 10:26 09/23/18 10:26 - EKG 1 Time of EKG reading by physician:: 10:15 EKG Read and Signed by:: Hemanth Randhawa EKG Interpretation (*Must complete 3 of following elements*): Abnormal Rate: 107 Rhythm: sinus tachycardia [place]: left QRS: RBB ND Interval: normal Comments: pulmonary disease pattern - XRAY 1 XRAY Study: Chest Impression: See EMR Report ( EXAM: CHEST-1 VIEW HISTORY: CP TECHNIQUE: Chest single view COMPARISON: 09/17/2018 FINDINGS: Poor inspiratory effort. The heart is not enlarged. The vessels are not distended. There are no infiltrates. No effusion identified. Prominent arthritis to each shoulder. IMPRESSION: No acute abnormality. Electronically signed by Dawit Sepulveda 09/23/2018 11:12 AM 09/23/18 1112 Interpreting Physician: Dawit Sepulveda MD Dictated Date/Time: 09/23/18 1111 cc: Hemanth Randhawa MD; None,PCP) - CONSULTS/PCP/HOSPITALIST Notification #1 *Consult/PCP/Hospitalist*: Dr. Badillo Time Discussed: 12:26 Reason/Comments: Dr. Randhawa consulted Dr. Badillo about patient Departure - Departure Date of Disposition Decision: 09/23/18 Time of Disposition Decision: 12:28 DIAGNOSIS: Chest pain Qualifiers: Chest pain type: unspecified Qualified Code(s): R07.9 - Chest pain, unspecified Disposition: ADMITTED INPATIENT 09 Certified Medical Emergency: Emergent Condition: Good Additional Freetext Instructions: ED Follow Up Instructions: You have been treated by a care provider in the Emergency Department. These instructions are being provided to you so you can have an understanding of how to care for yourself upon discharge. Upon discharge from the Emergency Department, you are responsible for making arrangements for follow-up care by a physician of your choice. Take all prescribed medications as directed. Return to the Emergency Department immediately for any new or worsening symptoms. You may call the Physician Referral phone number at [phone] to obtain a list of Physicians who are taking new patients. Referrals and Follow-Ups: None,PCP [Primary Care Provider] - - Critical Care Note This patient required my direct & personal management of CC.: No Attestation - Physician/ FILIBERTO Attestation Patient care was provided by Advanced Practice Provider:: No The physician spent face to face time with patient:: Yes Advanced Practice Provider documentation review:: Supervising physician onsite and consulted in the evaluation and care of this patient. The physician did have a face to face encounter with the patient. This chart was documented by the indicated scribe, (Aurea Esquivel, William) and accurately reflects the services I performed and decisions made by me, Hemanth Randhawa MD, as attested by the provider's signature.
[2018-09-23] MEDS ORDERED: NITROGLYCERIN TOP ONE (12:39)
[2018-09-23] MEDS ORDERED: TYLENOL PO PRN (14:47)
[2018-09-23] MEDS ORDERED: SALINE LOCK IV FLUID XX ONE (14:47)
[2018-09-23] MEDS ORDERED: ZOFRAN IV PRN (14:47)
[2018-09-23] MEDS ORDERED: NITROGLYCERIN SL PRN (14:47)
[2018-09-23] MEDS: HUMALOG (PARKWAY) SUBQ SCH ×2 (16:10→21:05)
[2018-09-23] MEDS: GLUCOPHAGE PO SCH (16:10)
[2018-09-23] MEDS: FLOMAX PO SCH (20:41)
[2018-09-23] MEDS: ACTIGALL PO SCH (20:41)
--- NOTE | 2018-09-23 21:22 | HISTORY AND PHYSICAL ---
CHIEF COMPLAINT: Chest pain and dizziness. HPI: This is a 62-year-old gentleman with a history of morbid obesity, diabetes mellitus, and hypertension. He presents to the emergency room complaining of chest pain that radiated to his lower back along with lightheadedness and shortness of breath, blurred vision, palpitations, and right hand numbness. He stated that symptoms started an hour prior to coming to the emergency room. He states that pain started in his lower back and that it wraps around his sides to his lower chest rib cage. He describes this as a sharp pain that it aggravates with any movement and does subside somewhat with lying still. He denied any fevers or chills. Of note, the patient was admitted to [facility], [place] from September 17 to September 19, at that time he ruled out by enzymes. He was evaluated by Cardiology who felt that his CTA was abnormal. Therefore, we transferred him to [facility] on the for further evaluation. The patient was discharged from [facility] "the other day" although he is not aware of his treatment or their findings at this time. PAST MEDICAL HISTORY: Diabetes mellitus, hypertension, hyperlipidemia, obesity. PAST SURGICAL HISTORY: Gastric bypass performed by Dr. Adam Morris status post 200 pound weight loss. SOCIAL HISTORY: He has never been . He is on disability. He lives alone. He denies any alcohol, tobacco, or illicit drug use. ALLERGIES: Codeine which causes hives and sulfa which causes anaphylaxis. HOME MEDICATIONS: A list will be obtained by the nursing staff and once verified will review restarted as appropriate. REVIEW OF SYSTEMS: Discussed with patient with pertinent positives stated in the HPI. He denied any chills or fever, any productive cough, any nausea, vomiting, diarrhea, constipation, black or bloody vomitus or stools, any hematuria, dysuria, frequency, urgency. PHYSICAL EXAMINATION: GENERAL: This is a 62-year-old gentleman who is lying in the bed in no distress. VITAL SIGNS: Blood pressure is 131/61 with a heart rate of 79, respirations 18, temperature 98.1 degrees with O2 saturations 100% on 2 L. CARDIOVASCULAR: Regular rate and rhythm. S1 and S2 appreciated. No murmur noted. He has no lower extremity edema. Calves are nontender bilateral with peripheral pulses palpable x4 extremities. PULMONARY: Breath sounds are clear with no increased work of breathing noted. Chest rises and falls symmetric respiration. Chest wall is nontender to palpation. GASTROINTESTINAL: Abdomen is soft, nontender, nondistended with bowel sounds in all 4 quadrants. GENITOURINARY: He has no CVA nor suprapubic tenderness. NEUROLOGIC: He is alert, he is oriented to his name, his birthday. He knows he is at [facility], [place]. He gets small details confused. SKIN: Warm and dry. LABS: WBC is 9.2 with hemoglobin 13.1, hematocrit 39.4, platelets of 252,000. Sodium 133, potassium 5, BUN 27, creatinine 0.8 with a glucose of 285. Troponin is negative on multiple occasions. Chest x-ray revealed no acute abnormality. ASSESSMENT AND PLAN: 1. Chest pain. 2. Low back pain. 3. Right hand numbness which is resolved. 4. Diabetes mellitus. 5. Hypertension. 6. Hyperlipidemia. 7. Hyponatremia. PLAN: The patient has been admitted to the medical-surgical floor at [facility] and placed on telemetry which will continue. Will check orthostatic vital signs q.12 hours, be placed on pattern blood glucose with sliding scale insulin. We will check hemoglobin A1c, CBC, CMP and lipid profile in the morning. We will trend troponins and cardiac profile. We will identify his home medications and continue as appropriate. We will request his records from his recent hospitalization at [facility]. Further treatments pending hospital course and discussion with dr Badillo. Dictated by ANDREW Plummer for Jasen Badillo MD cc: ANDREW Plummer MD [facility]
--- NOTE | 2018-09-24 01:26 | HISTORY AND PHYSICAL ---
ADDENDUM: Patient seen and examined by myself. Full note dictated and discussed with nurse practitioner. Patient notes that he is having chest pain. Also states he is having lightheadedness, shortness of breath, blurred vision, headaches, palpitations pain and a multitude of other symptoms. However, notes that his chest pain is similar to the previous chest pain that he has had when he had a CO. Therefore, we are going to admit him to the hospital, rule out CO and we will follow. Certainly do not expect that his chronic issues will resolve while he is in the hospital. Please see full dictation. cc: Jasen Badillo MD MTDD
[2018-09-24 05:37] LABS: HEMATOCRIT 37.1 % (42.0-52.0); HEMOGLOBIN 12.2 g/dL (14.0-18.0); MCH 29.5 PG (27-31); MCHC 32.9 g/dL (33-37); MCV 89.8 FL (81-99); MPV 9.9 FL (7.4-10.4); RBC 4.13 XMIL (4.7-6.1); RDW 13.1 % (11.5-14.5); WBC 6.19 X1000 (4.8-10.8)
[2018-09-24 05:47] LABS: HEMOGLOBIN A1C 9.1 % (4.8-6.0)
[2018-09-24 06:16] LABS: AGAP 10; ALBUMIN 3.5 g/dL (3.5-5.0); ALKALINE PHOSPHATASE 89 U/L (32-122); BUN 23 mg/dL (8-22); CALCIUM 8.7 mg/dL (8.8-10.2); CHLORIDE 97 mmol/L (98-107); CHOLESTEROL 134 mg/dL (0-200); COSMO 277; CREATININE 0.7 mg/dL (0.7-1.2); ESTIMATED GFR > 60; GLUCOSE 248 mg/dL (70-104); GOT 12 U/L (10-34); GPT 11 U/L (10-44); HDL 32 mg/dL (35-55); LDL 81 mg/dL; POTASSIUM 4.5 mmol/L (3.5-5.1); SODIUM 132 mmol/L (136-145); TCO2 26 mmol/L (25-35); TRIGLYCERIDES 107 mg/dL (39-160); VLDL 21 mg/dL
[2018-09-24] MEDS: PRILOSEC PO SCH (06:37)
[2018-09-24] MEDS: HUMALOG (PARKWAY) SUBQ SCH ×4 (06:37→21:26)
[2018-09-24] MEDS: ACTIGALL PO SCH ×2 (08:29→21:26)
[2018-09-24] MEDS: GLUCOPHAGE PO SCH ×2 (08:29→16:00)
[2018-09-24] MEDS: ASPIRIN PO SCH (08:30)
[2018-09-24] MEDS: PRINIVIL PO SCH (08:30)
[2018-09-24] MEDS: CALTRATE 600 + D PO SCH (08:30)
--- NOTE | 2018-09-24 14:22 | PROGRESS NOTE ---
DATE: 09/24/2018 SUBJECTIVE: Patient notes he still feels very weak in both lower extremities. States he is having difficulty ambulating. Denies any fevers or chills. Still having chest pain across the entirety of his chest. Denies any GI or issues otherwise. PHYSICAL EXAMINATION: Vital Signs: Temperature 97.5, pulse 68, respiratory 18, BP 132/76. General: Patient is awake. Currently he is in no distress. HEENT: Normocephalic. Neck: Supple. Cardiovascular: Regular rate. Chest: Clear. Decreased but equal breath sounds. Abdomen: Soft, nondistended. Extremities: Moves all extremities. ASSESSMENT: 1. Chest pain. More noncardiac in origin. 2. Generalized weakness. 3. Bilateral lower extremity weakness. 4. Hypertension. 5. Hyperlipidemia. 6. Hyponatremia. PLAN: We will continue patient in the hospital. Get physical therapy. Discussed with him that he needs to get out of bed while he is eating. We will continue to follow. Further orders as needed. cc: Jasen Badillo MD
[2018-09-24] MEDS: FLOMAX PO SCH (21:26)
[2018-09-25 05:40] LABS: HEMATOCRIT 39.1 % (42.0-52.0); HEMOGLOBIN 13.1 g/dL (14.0-18.0); MCH 29.8 PG (27-31); MCHC 33.5 g/dL (33-37); MCV 89.1 FL (81-99); MPV 9.7 FL (7.4-10.4); RBC 4.39 XMIL (4.7-6.1); RDW 13.1 % (11.5-14.5); WBC 6.25 X1000 (4.8-10.8)
[2018-09-25 06:05] LABS: AGAP 10; ALBUMIN 3.6 g/dL (3.5-5.0); ALKALINE PHOSPHATASE 98 U/L (32-122); BUN 21 mg/dL (8-22); CHLORIDE 97 mmol/L (98-107); COSMO 277; CREATININE 0.7 mg/dL (0.7-1.2); ESTIMATED GFR > 60; GLUCOSE 230 mg/dL (70-104); GOT 14 U/L (10-34); GPT 11 U/L (10-44); MAGNESIUM 1.5 mg/dL (1.5-2.7); SODIUM 133 mmol/L (136-145); TCO2 27 mmol/L (25-35); TOTAL PROTEIN 6.3 g/dL (6.3-8.3)
[2018-09-25] MEDS: PRILOSEC PO SCH (06:48)
[2018-09-25] MEDS: HUMALOG (PARKWAY) SUBQ SCH ×4 (06:48→20:35)
[2018-09-25] MEDS: PRINIVIL PO SCH (09:08)
[2018-09-25] MEDS: ACTIGALL PO SCH ×2 (09:09→20:26)
[2018-09-25] MEDS: GLUCOPHAGE PO SCH ×2 (09:09→17:10)
[2018-09-25] MEDS: CALTRATE 600 + D PO SCH (09:09)
[2018-09-25] MEDS: ASPIRIN PO SCH (09:09)
[2018-09-25] MEDS ORDERED: HUMULIN 70/30 SUBQ SCH (10:15)
--- NOTE | 2018-09-25 13:57 | PROGRESS NOTE ---
DATE: 09/23/2018 SUBJECTIVE: Patient states he may be feeling a little bit better. Denies any fevers or chills. States his chest pain is still present, but is better. Denies any shortness of breath. Denies any nausea or vomiting. OBJECTIVE: Vital Signs: Reviewed. Temperature 98 degrees, pulse 60, respiratory rate 18, blood pressure 98/67. General: Patient is awake, alert. He is in no current distress. He is sitting up in the chair. HEENT: Normocephalic. Neck: Supple. Cardiovascular: Regular rate. Chest: Clear, nonlabored. Abdomen: Soft. Nondistended. Extremities: Moves all extremities. Neurologic: No changes. ASSESSMENT: 1. Chest pain does not appear to be cardiac in nature. 2. Dizziness of undetermined origin. 3. Diabetes. 4. Hypertension. 5. Hyperlipidemia. 6. Hyponatremia. Improved. 7. Generalized adult failure to thrive with generalized weakness. PLAN: We will continue patient in the hospital. Continue to encourage ambulation and sitting in chair. Hopefully, will continue to improve and can be discharged home over the next 1 or 2 days. cc: Jasen Badillo MD
[2018-09-25] MEDS: FLOMAX PO SCH (20:26)
--- NOTE | 2018-09-26 03:45 | EKG Report ---
Test Performed on : 09/25/2018 10:53:09 PM Test Reason : chest pain Blood Pressure : / mmHG Vent. Rate : 071 BPM Atrial Rate : 071 BPM P-R Int : 192 ms QRS Dur : 136 ms QT Int : 412 ms P-R-T Axes : 016 -51 025 degrees QTc Int : 447 ms Normal sinus rhythm. Left axis deviation Right bundle branch block Abnormal ECG When compared with ECG of 23-SEP-2018 10:15, (Unconfirmed) Vent. rate has decreased BY 36 BPM Questionable change in QRS duration Confirmed by Martinez Juarez MD ([id number]) on 09/30/2018 7:33:50 AM
[2018-09-26 06:21] LABS: HEMATOCRIT 40.2 % (42.0-52.0); HEMOGLOBIN 13.4 g/dL (14.0-18.0); MCH 29.5 PG (27-31); MCHC 33.3 g/dL (33-37); MCV 88.4 FL (81-99); MPV 10.2 FL (7.4-10.4); RBC 4.55 XMIL (4.7-6.1); RDW 13.1 % (11.5-14.5); WBC 6.73 X1000 (4.8-10.8)
[2018-09-26 06:37] LABS: AGAP 11; ALBUMIN 3.8 g/dL (3.5-5.0); ALKALINE PHOSPHATASE 105 U/L (32-122); BUN 21 mg/dL (8-22); CHLORIDE 93 mmol/L (98-107); COSMO 272; CREATININE 0.7 mg/dL (0.7-1.2); ESTIMATED GFR > 60; GLUCOSE 238 mg/dL (70-104); GOT 14 U/L (10-34); GPT 10 U/L (10-44); MAGNESIUM 1.5 mg/dL (1.5-2.7); SODIUM 130 mmol/L (136-145); TCO2 26 mmol/L (25-35); TOTAL PROTEIN 6.8 g/dL (6.3-8.3)
--- NOTE | 2018-09-26 06:39 | Diag Imaging Result Doc PS360 ---
EXAM: CHEST-2 VIEWS HISTORY: hypoxia TECHNIQUE: Chest two views COMPARISON: 09/23/2018 FINDINGS: The lungs are well expanded. The heart is not enlarged. The vessels are not distended. There are no infiltrates. No pleural effusions. IMPRESSION: No acute abnormality. Electronically signed by Dawit Sepulveda 09/26/2018 6:37 AM
[2018-09-26] MEDS: HUMALOG (PARKWAY) SUBQ SCH ×4 (06:49→22:46)
[2018-09-26] MEDS: PRILOSEC PO SCH ×2 (06:50→22:30)
[2018-09-26] MEDS: ASPIRIN PO SCH (08:25)
[2018-09-26] MEDS: ACTIGALL PO SCH ×2 (08:25→22:47)
[2018-09-26] MEDS: GLUCOPHAGE PO SCH (08:25)
[2018-09-26] MEDS: PRINIVIL PO SCH (08:25)
[2018-09-26] MEDS: CALTRATE 600 + D PO SCH (08:25)
[2018-09-26] MEDS: ROBITUSSIN-DM PO PRN ×2 (08:42→14:24)
--- NOTE | 2018-09-26 14:05 | PROGRESS NOTE ---
DATE: 09/26/2018 SUBJECTIVE: Patient reports still having some chest pain but is better. He also reports shortness of breath at time on my examination. He denies any other complaint. OBJECTIVE: Vital Signs: Temperature 97.7 degrees, heart rate 79, respiratory rate 18, blood pressure 102/50, O2 saturation 100% 2 L nasal cannula. General: This is a 62-year-old male looking older than his stated age lying in bed in no acute distress. HEENT: Head is normocephalic, atraumatic. Neck: No JVD noted. No carotid bruits, no lymphadenopathy, no thyromegaly. Cardiovascular: S1, S2 heard. No murmurs, gallops or rubs. Regular rate and rhythm. Respiratory: Coarse breath sounds noted in both bases. Patient is not using any accessory muscles or having work of breathing. Abdomen: Soft, nontender to palpation, nondistended. Bowel sounds present. No organomegaly. Extremities: No clubbing, cyanosis or edema. Peripheral pulses present in both legs. Neurologic: Patient is alert and oriented x3, moves 4 extremities. LABORATORY DATA: Normal white cell count. The BMP shows sodium 130, glucose 238. ASSESSMENT AND PLAN: 1. Chest discomfort . I do not think this chest pain is cardiac in nature. We have checked troponins 3 times and also EKGs and EKG changes . At this time considering he persists with chest discomfort and shortness of breath will order CTA of pulmonary arteries to rule out any pulmonary embolism and also echocardiogram as well . In the meantime will continue with the same management. He denies any medical history chronic obstructive pulmonary disease. He is requiring 2 L of oxygen by nasal cannula. 2. Diabetes mellitus type 2, continue with sliding scale insulin and Accu-Chek before meals and also bedtime. 3. Hypertension, blood pressure is under control, will continue with the same medication. 4. Hyperlipidemia, will continue with the statins. 5. Hyponatremia, sodium is slightly low, will continue to monitor. 6. Generalized adult failure to thrive with general weakness, physical therapy on board. 7. At this point we are waiting for results of the CTA of pulmonary arteries and echocardiogram as well. cc: MD Jasen Ramos MD
--- NOTE | 2018-09-26 14:12 | Diag Imaging Result Doc PS360 ---
EXAM: CT ANGIOGRM PULMONARY ARTERIES HISTORY: persistent sob TECHNIQUE: CT chest with intravenous contrast. Pulmonary arterial protocol with MIP images. COMPARISON: 09/17/2018 FINDINGS: Normal opacification of the pulmonary arteries and their branches. No pleural effusions. No aortic aneurysm or dissection. Moderate atherosclerosis. No cardiomegaly. There are multiple scattered granuloma. No pneumonia. No atelectasis. No other parenchymal abnormality. There are old rib fractures. No pneumothorax. IMPRESSION: No pulmonary emboli. This exam was performed using automated exposure control, adjustment of mA or kV according to patient size, and/or use of iterative reconstruction technique. Electronically signed by Dawit Sepulveda 09/26/2018 2:09 PM
[2018-09-26] MEDS: FLOMAX PO SCH (22:47)
[2018-09-27] MEDS: HUMALOG (PARKWAY) SUBQ SCH ×4 (06:25→21:58)
[2018-09-27] MEDS: PRILOSEC PO SCH ×2 (06:31→20:55)
[2018-09-27] MEDS: ASPIRIN PO SCH (08:27)
[2018-09-27] MEDS: CALTRATE 600 + D PO SCH (08:27)
[2018-09-27] MEDS: ACTIGALL PO SCH ×2 (08:27→20:56)
[2018-09-27] MEDS: PRINIVIL PO SCH (08:27)
--- NOTE | 2018-09-27 15:14 | PROGRESS NOTE ---
DATE: 09/27/2018 SUBJECTIVE: The patient reports still mild shortness of breath. So far, we have ordered a CT angiogram of the chest, which ruled out pulmonary embolism, and no pneumonia or any lung problems reported. OBJECTIVE: Vital Signs: Temperature 97.7 degrees, heart rate 66, respiratory rate 18, blood pressure 113/58, O2 saturation 100% 2 L nasal cannula. General Examination: This is a 62-year- old male, looking older than his stated age, lying in bed, in no acute distress. Cardiovascular: S1, S2 heard. No murmurs, gallops, or rubs. Regular rate and rhythm. Respiratory: Coarse breath sounds still noted in both pulmonary bases. Patient not using any accessory muscles or having work of breathing. Abdomen: Soft, nontender to palpation. Nondistended. Bowel sounds present. No organomegaly. Extremities: No clubbing, cyanosis, or edema. Peripheral pulses present in both legs. Neurological: Patient is alert and oriented x3. Moves 4 extremities. LABORATORY DATA: No labs from today. ASSESSMENT AND PLAN: 1. Chest discomfort. The patient continues to complain of chest discomfort and shortness of breath. As we mentioned before, CTA for pulmonary artery disease to rule out pulmonary embolism. That exam also did not show any pneumonia or any other process that would explain why he is short of breath. He is also not requiring any oxygen supplementation. Considering that this patient has been sent to [facility] the last hospitalization, I consulted Cardiology. They think that this patient has a chest pain that is musculoskeletal in nature. At this time, I am planning to observe him 24 more hours, and if all vitals are okay and labs as well, I will let this patient go, and he has an appointment with his primary care physician in a couple weeks. 2. Diabetes mellitus, type 2. We will continue with sliding scale insulin and Accu-Chek before meals and also at bedtime. 3. Hypertension. Blood pressure is under control. We will continue with same medication. 4. Hyperlipidemia. We will continue with statin. 5. Hyponatremia. There are no labs from today, but sodium for the last few days has not been too low. We will continue to monitor. 6. Generalized adult failure to thrive. Physical Therapy working with this patient. DISPOSITION: I think if all his results are better tomorrow and considering that he has been evaluated by Cardiology and no chest pain from a cardiac source is noted, I think we will discharge him. cc: MD Jasen Ramos MD
--- NOTE | 2018-09-27 16:01 | CARDIOLOGY CONSULTATION ---
DATE: 09/27/2018 CHIEF COMPLAINT ON PRESENTATION: Chest pain. HISTORY OF PRESENT ILLNESS: Mr. Justice is a 62-year-old gentleman with a history of diabetes and morbid obesity, who presented for evaluation of chest pain. He was apparently recently in the hospital around 1 week ago and transferred over to [place] and he subsequently had a cardiac catheterization. This demonstrated nonobstructive coronary disease and he was discharged. He re- presented after he woke up and felt very dizzy. This was while he was going to the restroom. He had some pressure-like discomfort in the chest that persisted for around 5 to 6 hours and then abated on its own. There was no exertional component. He noted some numbness in his right arm as well. He had nausea, vomiting, or diaphoresis associated with this. PAST MEDICAL HISTORY: 1. Significant for coronary disease with recent cardiac catheterization performed in [place] on September 21, 2018. This demonstrated a normal left main. The LAD had diffuse irregularities around 30%. The circumflex had proximal 20% disease. The right coronary had proximal 30 to 40% disease. Left ventriculogram demonstrated an EF of 60%. His recent echocardiogram demonstrated an ejection fraction 55 to 60% percent. No significant valvular abnormalities. 2. Morbid obesity status post gastric bypass but continues to have a BMI of around 44. 3. Diabetes. 4. Hypertension. 5. BPH. SOCIAL HISTORY: He does not smoke. FAMILY HISTORY: Significant for hypertension. REVIEW OF SYSTEMS: A 10 system review of systems is negative except for those things mentioned in HPI. PHYSICAL EXAMINATION: Vital signs: The patient is afebrile. His heart rate is 66. His blood pressure is 113/58. General: He is in no acute distress. HEENT: Oropharynx is moist. Poor dentition. Eye examination shows pink conjunctivae, white sclerae. Neck: No obvious thyromegaly or thyroid tenderness. Cardiovascular: He sounds to be in a regular rate and rhythm. He has no obvious murmurs. He has no S3. He has no lower extremity edema. Chest: Sounds clear bilaterally. Distant breath sounds secondary to his body habitus. He does have pain reproducible with palpation of the sternal area. He has no obvious deformity in this area. Abdomen: Soft, nontender. No obvious organomegaly. Skin: Warm and dry throughout without any rashes. Neurological: He is moving all extremities well. He has no lateralizing deficits. Psychiatric: He is alert, oriented, pleasant. Normal mood and affect. PERTINENT DATA: His pulmonary arteriogram demonstrates no pulmonary emboli. No dissection. No infiltrates. Moderate atherosclerosis was identified. His EKG reviewed by me, occurring on the at 2253 shows sinus rhythm with a right bundle branch block. No obvious ischemic changes or evidence of old infarct. His lab data yesterday shows a white count of 6.7, hematocrit 40, platelet count of 290,000. Sodium 130, potassium 5, BUN 21, creatinine 0.7. Cardiac enzymes are negative. His LDL on the first was 89. ASSESSMENT: Mr. Justice is a 62-year-old gentleman who presents with complaints of chest pain. PLAN: He had nonobstructive coronary disease on recent catheterization one week ago. He is not having exertional chest pain and his symptoms are reproducible in nature with palpation of the chest wall. It is unlikely that this is anginal in nature and I would not recommend an ischemic evaluation at this time. I will start him on a statin given his CAD and current LDL levels. He may follow up with Dr. Gonzalez after discharge from the hospital. Please let me know if I can be of further assistance with this patient. cc: MD Jasen Veras MD [facility] MED[facility] CENTERAshlyn
[2018-09-27] MEDS: FLOMAX PO SCH (20:55)
[2018-09-27] MEDS ORDERED: LIPITOR PO SCH (21:00)
[2018-09-28] MEDS: HUMALOG (PARKWAY) SUBQ SCH ×2 (05:59→11:08)
[2018-09-28] MEDS: PRILOSEC PO SCH (05:59)
[2018-09-28 06:47] LABS: BASO# 0.01 X1000 (0.0-0.2); BASO% 0.2 % (0.0-0.8); EOS# 0.14 X1000 (0.0-0.7); EOS% 2.6 % (0.0-10.0); IMM GRAN# 0.02 X1000 (0.0-0.04); IMM GRAN% 0.4 % (0.0-0.5); LYMPH# 1.13 X1000 (1.2-3.4); LYMPH% 20.8 % (20.5-51.1); MCH 29.5 PG (27-31); MCHC 33.3 g/dL (33-37); MCV 88.5 FL (81-99); MONO# 0.57 X1000 (0.11-0.59); MONO% 10.5 % (1.7-9.3); MPV 10.3 FL (7.4-10.4); NEUT# 3.55 X1000 (1.4-6.5); NEUT% 65.5 % (42.2-75.2); PLT 235 X1000 (130-400); RBC 4.07 XMIL (4.7-6.1); WBC 5.42 X1000 (4.8-10.8)
[2018-09-28 06:50] LABS: AGAP 10; BUN 20 mg/dL (8-22); CALCIUM 8.9 mg/dL (8.8-10.2); CHLORIDE 97 mmol/L (98-107); COSMO 279; CREATININE 0.7 mg/dL (0.7-1.2); ESTIMATED GFR > 60; GLUCOSE 305 mg/dL (70-104); SODIUM 132 mmol/L (136-145); TCO2 25 mmol/L (25-35)
[2018-09-28] MEDS: CALTRATE 600 + D PO SCH (08:32)
[2018-09-28] MEDS: ACTIGALL PO SCH (08:32)
[2018-09-28] MEDS: PRINIVIL PO SCH (08:32)
[2018-09-28] MEDS ORDERED: ASPIRIN EC PO SCH (09:00)
[2018-09-28 14:40] VITALS: BP 129/64
--- NOTE | 2018-09-30 03:57 | DISCHARGE SUMMARY ---
ADMISSION DATE: 09/28/2018 DISCHARGE DATE: 09/28/2018 ADMISSION DIAGNOSES: 1. Chest pain. 2. Low back pain. 3. Right hand numbness, resolved. 4. Diabetes. 5. Hypertension. 6. Hyperlipidemia. 7. Hyponatremia. DISCHARGE DIAGNOSES: 1. Chest pain, resolved. Did not appear to be cardiac in nature. 2. Dizziness of undetermined origin. 3. Diabetes. 4. Hypertension. 5. Hyperlipidemia. 6. Hyponatremia, resolved. 7. Generalized adult failure to thrive with generalized weakness. 8. Fall. SUMMARY OF FINDINGS: This is a 62-year-old male who presents to the emergency room with chest pain that radiated to his lower back along with lightheadedness, shortness of breath, blurred vision, palpitations ,and right hand numbness. Stated the symptoms began 1 hour prior to coming to the emergency room. States the low back pain wrapped around his sides to his lower chest rib cage. He described it as a sharp pain that was aggravated with any movement and did subside when lying still. He had been admitted September 17 through September 19 with these same complaints and ruled out by enzymes. He was evaluated by Cardiology who felt that the CTA was normal. [facility] on the and was discharged from there, but he was not aware of his treatment or other findings at the time of admission. He was admitted. We consulted Cardiology again who noted he had nonobstructive coronary disease on a recent catheterization 1 week prior. Was not having exertional chest pain and his symptoms seemed to be reproducible in nature with palpation to the chest wall and that it was unlikely that this was anginal in nature and would recommend an ischemic evaluation. He was started on a statin and was instructed to follow up with Dr. Gonzalez, his instructor product inspection, once he was discharged. Physical therapy was consulted and he was felt to be ready for discharge. Right prior to him being discharged, the patient got up in his room and lost his balance and had a fall, but he had no injury, no complaints of pain. States he just slipped and fell onto his knees, and so it was still felt that he could safely be discharged home. DISCHARGE MEDICATIONS: Aspirin 81 mg p.o. daily, Lipitor 40 mg p.o. at bedtime, calcium with vitamin D 1 p.o. daily, Humulin 70/30 as directed per protocol, lisinopril 10 mg p.o. daily, metformin 1000 mg p.o. b.i.d., tamsulosin 0.4 mg p.o. at bedtime, and ursodiol 300 mg 1 capsule b.i.d. FOLLOWUP: He will need to follow up with his instructor product inspection, Dr. Gonzalez, on 10/24/2018 at 2:30 p.m. He will need to follow with his primary care physician in the next week and call their office for an appointment. He will have home health care services at home. TIME SPENT: This is a 35-minute discharge. Dictated by ANDREW Bernabe for Cesar Longo MD Addendum: Patient seen and examined by myself. Agree with ANDREW note. It reflects my assessment and plan. Patient is being discharged in stable condition. Will be seen by PCP and instructor product inspection as already scheduled. cc: ANDREW Bernabe MD Gregory S. Cheatham, MD Luis N. Villanueva, MD Hiteshri S. Bhavsar, MD MTDD
== END 2018-09-28 14:59 | disposition home health service (06) | DRG 313 ==
LOC: P.ED 10:20 → P.MEDSURG 10:20 → SUATTDRO 13:16 → P.MEDSURG 13:23
PROVIDERS: ADMIT Family Medicine; ATTEND Internal Medicine
CPT/HCPCS: 71010; 71020; 71045; 71046; 71275; 80048; 80053; 80061; 82550; 82948; 83036; 83735; 83880; 84484; 85025; 85027; 85610; 85730; 93005; 93010; 93306; 94761; 96360; 97116; 97161; 97165; 97530; 97535; 99285; A9270; J1815; J7040; Q9967; XXXXX

== ENCOUNTER 2018-12-17 11:38 | Observation (INO) ==
[2018-12-17] MEDS ORDERED: ASPIRIN PO ONE (11:49)
--- NOTE | 2018-12-17 11:58 | PROVIDER DOCUMENTATION ---
HPI-Chest Pain - General Chief Complaint: Shortness of Breath Stated Complaint: SOB Time Seen by Provider: 12/17/18 11:50 Source: patient Allergies/Adverse Reactions: Patient Allergies Allergy/AdvReac Type Severity Reaction Status Date / Time codeine Allergy HIVES Verified 12/17/18 12:12 Sulfa (Sulfonamide Allergy ANAPHYLAXIS Verified 12/17/18 12:12 Antibiotics) Home Medications: Home Medication List Medication Instructions Recorded Confirmed Last Taken Type Insulin NPH Hum/Reg Insulin Hm See Protocol SQ DIRECTED 05/27/18 12/17/18 08/17/18 History [Humulin 70/30 Kwikpen] Metformin [Glucophage] 1,000 mg PO BID 05/27/18 12/17/18 08/17/18 History Ursodiol 1 cap PO BID 05/27/18 12/17/18 08/17/18 History Calcium Carbonate/Vitamin D3 1 cap PO DAILY 09/18/18 12/17/18 Unknown History [Calcium 600-Vit D3 800 Tablet] Lisinopril 10 mg PO DAILY 09/18/18 12/17/18 Unknown History Tamsulosin [Flomax] 1 cap PO HS 09/18/18 12/17/18 Unknown History ATORVAstatin [Lipitor] 40 mg PO QHS #90 tab 09/28/18 12/17/18 Unknown Rx Aspirin EC 81 mg PO DAILY tab 09/28/18 12/17/18 Unknown Rx Albuterol Sulfate [Proventil Hfa] 6.7 gm INHALATION Q6H PRN PRN #1 12/08/18 12/17/18 Unknown Rx [email or web address] Ezetimibe 10 mg PO DAILY 12/17/18 12/17/18 Unknown History - History of Present Illness-CP Nature of Presenting Problem: 63 YOM PRESENTS WITH C/O CHEST PAIN (HEAVY, RADIATES R ARM), SOB THAT BEGAN THIS MORNING. CP WAS INITIALLY RELIEVED WITH NTG BUT CAME BACK SO THE PATIENT CAME TO THE ER. HE HAS A PMH OF CT, HTN, DM, CHF Location: reports: substernal Chest Pain Radiation: reports: arms (R) Quality of Pain: reports: pressure (HEAVINESS) Severity in ED: mild Onset/Duration: 4-6 hours ago Timing: still present Context/Activities at Onset: reports: none Modifying Factors: improves with: nothing Associated Symptoms: reports: nausea, shortness of breath Nitro Today/Relief: 0.4 mg x 1, provided at home Aspirin Treatment Today: no aspirin today Similar Symptoms Previously?: Yes Recently Seen Here or By Another Healthcare Provider: No Review of Systems - Adult - REVIEW OF SYSTEMS - ADULT Constitutional: reports: no symptoms reported. denies: see HPI, chills, fever, fatique, night sweats, weight gain, weight loss, other Eyes: reports: no symptoms reported. denies: see HPI, discharge, dry eyes, decreased vision, blurred vision, double vision, eye pain, redness, other Ears, Nose, Mouth & Throat: reports: no symptoms reported. denies: see HPI, ear discharge, ear pain, hearing loss, tinnitus, epistaxis, sinus problem, nose pain, loose teeth, mouth/dental pain, mouth swelling, hoarseness, throat pain, throat swelling, other Cardiovascular: reports: see HPI, chest pain. denies: no symptoms reported, ed cydney, heart murmur, irregular heart rate, orthopnea, palpitations, poor circulation, PND, syncope, other Respiratory: reports: cough, shortness of breath. denies: no symptoms reported, see HPI, chronic cough, dyspnea on exertion, excessive sputum production, hemoptysis, pleurisy, wheezing, other Gastrointestinal: reports: no symptoms reported. denies: see HPI, abdominal pain, hematemesis, constipation, diarrhea, difficulty swallowing, frequent heartburn, nausea, poor appetite, rectal bleeding, vomiting, other Genitourinary: reports: no symptoms reported. denies: see HPI, dysuria, discharge, frequency, flank pain, frequent UTI's, hematuria, hesitency, incontinence, urinary retention, urgency, other Musculoskeletal: reports: no symptoms reported. denies: see HPI, bone pain, back pain, frequent leg cramps, joint pain, joint swelling, muscle aches, muscle weakness, neck pain, other Integumentary: reports: no symptoms reported. denies: see HPI, hives, hair loss, itching, mole changes, nail changes, rash, skin sores/ulcer, skin thickeni ng, other Neurological: reports: no symptoms reported. denies: see HPI, ataxia, dizziness/vertigo, headache/migraines, loss of balance, numbness, paresthesia, seizure, slurred speech, syncope, tremors, other Psychiatric: reports: no symptoms reported. denies: see HPI, anxiety, anti- depressant use, alcohol/drug dependence, depression, emotional problems, insomnia, panic attacks, suicidal thoughts, other Endocrine: reports: no symptoms reported. denies: see HPI, change in skin pigment, excessive sweating, goiter, cold intolerance, heat intolerance, increased hunger, increased thirst, polyuria, other Hematologic/Lymphatic: reports: no symptoms reported. denies: see HPI, blood clots, easy bruising, low blood count, lymphedema, prolonged bleeding, swollen lymph nodes, transfusions, other Allergic/Immunologic: reports: no symptoms reported. denies: see HPI, allergic reactions, allergic rhinitis, asthma, eczema, food allergy, frequent infections, hay fever, hives, positive PPD, urticaria, other Past History - Adult - PAST MEDICAL HISTORY-ADULT Review of Records: reports: Nursing Assessment Review, Social history reviewed & non-contributory. Major Childhood Illnesses: reports: denies history Cardiovascular: reports: HTN, hyperlipidemia, CT Respiratory: reports: denies history Gastrointestinal: reports: denies history Obstetrical/Gynecological: reports: denies history Genitourinary: reports: denies history Musculoskeletal: reports: denies history Neurological: reports: denies history Psychiatric: reports: denies history Endocrine/Immune: reports: Diabetes Other Conditions: reports: denies history - PRIOR SURGERIES/PROCEDURES Surgical/Procedure History: reports: gastric bypass - IMMUNIZATION STATUS Childhood Immunizations: See Nurse Assessment Flu Vaccine: See Nurse Assessment - FAMILY HISTORY Family History: reviewed, not pertinent Physical Exam-General - PHYSICAL EXAM-ADULT Initial Vital Signs Reviewed: Yes - CONSTITUTIONAL General Appearance: appears well, alert, no apparent distress - EYES Eyes: PERRL/EOMI - HEAD, EARS, NOSE, MOUTH & THROAT HENMT: normocephalic/atraumatic, moist mucous membranes, normal ENT inspection - NECK Neck: non-tender, full range of motion, supple - RESPIRATORY Respiratory: chest non-tender, lungs clear - CARDIOVASCULAR Cardiovascular: normal peripheral pulses, regular rate, rhythm - GASTROINTESTINAL (ABDOMEN) Abdominal Exam: normal bowel sounds, non tender, soft, other (OBESE) - LYMPHATIC Lymphatic: no adenopathy - MUSCULOSKELETAL Back Exam: normal inspection Extremity: normal range of motion, non-tender, normal gait - SKIN Integumentary: normal color, normal turgor, warm/dry - PSYCHIATRIC Psych/Mental Status: normal mood/affect, oriented x 3 - HEART Score HEART Score: History: Moderately Suspicious HEART Score: ECG: Non-Specific Repolarization Disturbance/LBBB/PM HEART Score: Age: 45-65 Years HEART Score: Risk Factors for Atherosclerotic Disease: > or = 3 Risk Factors or History of Atherosclerotic Disease HEART Score: Troponin: < or = Normal Limit Total HEART Score:: 5 Progress - PLAN OF CARE/RESULTS Progress/Plan/Lab Results: Vital Signs - 8 hr 12/17/18 11:45 12/17/18 12:16 12/17/18 13:06 Temperature 98 F Pulse Rate 82 85 71 Respiratory Rate 18 16 15 Blood Pressure 126/74 104/77 108/62 O2 Sat by Pulse Oximetry 95 96 95 Laboratory Results - last 24 hr 12/17/18 12/17/18 12/17/18 12:08 12:08 12:08 WBC 8.67 RBC 4.37 L Hgb 12.8 L Hct 39.5 L MCV 90.4 MCH 29.3 MCHC 32.4 L RDW Std Deviation 13.6 Plt Count 294 MPV 9.8 Immature Gran % (Auto) 0.2 Neut % (Auto) 76.9 H Lymph % (Auto) 14.8 L Patrick % (Auto) 6.5 Eos % (Auto) 1.3 Baso % (Auto) 0.3 Immature Gran # (Auto) 0.02 Neut # (Auto) 6.67 H Lymph # (Auto) 1.28 Patrick # (Auto) 0.56 Eos # (Auto) 0.11 Baso # (Auto) 0.03 PT INR PTT (Actin FS) Sodium 136 Potassium 4.6 Chloride 101 Carbon Dioxide 23 L Anion Gap 12 BUN 25 H Creatinine 0.9 Estimated GFR/1.73 m2 > 60 BUN/Creatinine Ratio 28 Glucose 208 H Calculated Osmolality 282 Calcium 8.6 L Total Bilirubin 0.20 AST 13 ALT 7 L Alkaline Phosphatase 102 Creatine Kinase 106 Troponin T Rss-[id number]-Zyjyascfcdt Pept 161 Total Protein 6.2 L Albumin 3.6 Globulin 3.0 Albumin/Globulin Ratio 1.0 12/17/18 12/17/18 12:08 12:08 WBC RBC Hgb Hct MCV MCH MCHC RDW Std Deviation Plt Count MPV Immature Gran % (Auto) Neut % (Auto) Lymph % (Auto) Patrick % (Auto) Eos % (Auto) Baso % (Auto) Immature Gran # (Auto) Neut # (Auto) Lymph # (Auto) Patrick # (Auto) Eos # (Auto) Baso # (Auto) PT 11.9 INR 0.84 PTT (Actin FS) 27.4 Sodium Potassium Chloride Carbon Dioxide Anion Gap BUN Creatinine Estimated GFR/1.73 m2 BUN/Creatinine Ratio Glucose Calculated Osmolality Calcium Total Bilirubin AST ALT Alkaline Phosphatase Creatine Kinase Troponin T < 0.010 Odp-A-Lnnatrppdaj Pept Total Protein Albumin Globulin Albumin/Globulin Ratio Orders Category Date Time Status Cardiac Monitoring DIRECTED Care 12/17/18 11:49 Active Oxygen Therapy- ED Nursing DIRECTED Care 12/17/18 11:49 Active Saline Loc NOW Care 12/17/18 11:49 Active CHEST-2 VIEWS [RAD] Stat Exams 12/17/18 11:49 Completed CBC WITH ELECTRONIC DIFF [HEME] Stat Lab 12/17/18 12:08 Completed CK PROFILE [SP CHEM] Stat Lab 12/17/18 12:08 Completed COMPREHENSIVE METABOLIC PANEL [CHEM] Stat Lab 12/17/18 12:08 Completed PRO B-NATRIURETIC PEPTIDE Stat Lab 12/17/18 12:08 Completed PROTIME WITH INR [COAG] Stat Lab 12/17/18 12:08 Completed PTT [COAG] Stat Lab 12/17/18 12:08 Completed TROPONIN T Stat Lab 12/17/18 12:08 Completed TROPONIN T Stat Lab 12/17/18 14:16 Ordered Aspirin Med 12/17/18 11:49 Discontinued 325 mg PO NOW ONE CP/SOB/Palp >45 yrs of Age Stat Oth 12/17/18 11:49 Ordered EKG [EKG] Stat Ther 12/17/18 11:49 Draft Result Diagrams: 12/17/18 12:08 12/17/18 12:08 - EKG 1 Time of EKG reading by physician:: 12:13 EKG Read and Signed by:: Hemanth Randhawa EKG Interpretation (*Must complete 3 of following elements*): Normal Rate: 83 Rhythm: SR [place]: left QRS: RBB SD Interval: normal ST Wave: normal Prior EKG Comparison: unchanged from prior - XRAY 1 XRAY: Right XRAY Study: Chest Impression: See EMR Report (CHEST-2 VIEWS - 12/17/2018 INDICATION: sob COMPARISON: 12/08/2018 FINDINGS: The lungs are normally expanded and clear. Heart size and mediastinal contours are normal. No pneumothorax or pleural effusion. IMPRESSION: Negative exam. Electronically signed by Rock Mayorga 12/17/2018 1:39 PM 12/17/18 1339 Interpreting Physician: Rock Mayorga MD Dictated Date/Time: 12/17/18 1339 cc: Hemanth Randhawa MD; None,PCP) Departure - Departure Date of Disposition Decision: 12/17/18 Time of Disposition Decision: 14:39 DIAGNOSIS: Chest pain Disposition: ADMITTED INPATIENT 09 Certified Medical Emergency: Emergent Condition: Stable Referrals and Follow-Ups: None,PCP [Primary Care Provider] - - Critical Care Note This patient required my direct & personal management of CC.: No Attestation - Physician/ FILIBERTO Attestation Patient care was provided by Advanced Practice Provider:: Yes Advanced Practice Provider:: Flori Mejia Advanced Practice Provider documentation review:: The Mid-level provider documentation, treatment plan and medical decision making was reviewed by the physician who agrees with all treatment and medical decision making by the P. The physician spent face to face time with patient:: No Advanced Practice Provider documentation review:: Supervising physician onsite and consulted in the evaluation and care of this patient. The physician did not have a face to face encounter with the patient.
[2018-12-17 12:30] LABS: BASO# 0.03 X1000 (0.0-0.2); BASO% 0.3 % (0.0-0.8); EOS# 0.11 X1000 (0.0-0.7); EOS% 1.3 % (0.0-10.0); HEMATOCRIT 39.5 % (42.0-52.0); HEMOGLOBIN 12.8 g/dL (14.0-18.0); IMM GRAN# 0.02 X1000 (0.0-0.04); IMM GRAN% 0.2 % (0.0-0.5); LYMPH# 1.28 X1000 (1.2-3.4); LYMPH% 14.8 % (20.5-51.1); MCH 29.3 PG (27-31); MCHC 32.4 g/dL (33-37); MCV 90.4 FL (81-99); MONO# 0.56 X1000 (0.11-0.59); MONO% 6.5 % (1.7-9.3); MPV 9.8 FL (7.4-10.4); NEUT# 6.67 X1000 (1.4-6.5); NEUT% 76.9 % (42.2-75.2); PLT 294 X1000 (130-400); RBC 4.37 XMIL (4.7-6.1); RDW 13.6 % (11.5-14.5); WBC 8.67 X1000 (4.8-10.8)
--- NOTE | 2018-12-17 12:34 | EKG Report ---
Test Performed on : 12/17/2018 12:02:12 PM Test Reason : sob chest pressure Blood Pressure : / mmHG Vent. Rate : 083 BPM Atrial Rate : 083 BPM P-R Int : 178 ms QRS Dur : 132 ms QT Int : 410 ms P-R-T Axes : 027 -64 004 degrees QTc Int : 481 ms Normal sinus rhythm. Left axis deviation Right bundle branch block Abnormal ECG When compared with ECG of 08-DEC-2018 02:06, (Unconfirmed) No significant change was found Unconfirmed Result
[2018-12-17 12:43] LABS: INR 0.84; PROTIME 11.9 Seconds (11.0-16.0)
[2018-12-17 12:44] LABS: PTT 27.4 Seconds (22.3-41.8)
[2018-12-17 12:48] LABS: AGAP 12; ALBUMIN 3.6 g/dL (3.5-5.0); ALKALINE PHOSPHATASE 102 U/L (32-122); BUN 25 mg/dL (8-22); CALCIUM 8.6 mg/dL (8.8-10.2); CHLORIDE 101 mmol/L (98-107); COSMO 282; CREATININE 0.9 mg/dL (0.7-1.2); ESTIMATED GFR > 60; GLUCOSE 208 mg/dL (70-104); GOT 13 U/L (10-34); POTASSIUM 4.6 mmol/L (3.5-5.1); SODIUM 136 mmol/L (136-145); TCO2 23 mmol/L (25-35); TOTAL PROTEIN 6.2 g/dL (6.3-8.3)
[2018-12-17 12:49] LABS: CK PROFILE 106 U/L (24-204); GPT 7 U/L (10-44)
--- NOTE | 2018-12-17 13:41 | Diag Imaging Result Doc PS360 ---
CHEST-2 VIEWS - 12/17/2018 INDICATION: sob COMPARISON: 12/08/2018 FINDINGS: The lungs are normally expanded and clear. Heart size and mediastinal contours are normal. No pneumothorax or pleural effusion. IMPRESSION: Negative exam. Electronically signed by Rock Mayorga 12/17/2018 1:39 PM
--- NOTE | 2018-12-17 17:33 | HISTORY AND PHYSICAL ---
ADDENDUM: I saw the patient [id number] and fully agree with the assessment and plan of Nurse Practitioner Carolina Pratt. This is a 63-year-old gentleman who has been admitted with chest pain. So far, his cardiac enzymes are negative, and no significant abnormalities are seen on his ECG. We are going to follow the chest pain protocol and hospital course. cc: Addis Ferreira MD
--- NOTE | 2018-12-17 18:06 | HISTORY AND PHYSICAL ---
CHIEF COMPLAINT: Chest pain, shortness of breath. HPI: This is a 63-year-old gentleman who presented to the emergency room complaining of midsternal chest pain that radiated to his right arm. He states that it began in the morning. He took a nitroglycerin , pain relieved. It came back prompting his arrival at the emergency room. He states that this chest pain has been ongoing since 2016. He has had multiple negative workups. His public relations senior associate is Dr. Gonzalez. Cardiac catheterization in August 2018 demonstrated normal left main, LAD with diffuse irregularities around 30%, circumflex 20% proximal disease, right coronary artery had proximal 30 to 40 percent disease. EF is 60%. Echocardiogram in August revealed an ejection fraction of 55 to 60 percent with no significant valvular abnormalities. The patient denied any numbness, nausea, vomiting, diaphoresis. There was no exertional component. PAST MEDICAL HISTORY: 1. Morbid obesity status post gastric bypass with a current BMI of 37. 2. Diabetes mellitus type 2. 3. Hypertension. 4. BPH. 5. CAD. PAST SURGICAL HISTORY: [id number]. SOCIAL HISTORY: He denies alcohol, tobacco or illicit drug use. ALLERGIES: Codeine and sulfa with sulfa causing anaphylaxis . HOME MEDICATION: List will be obtained by the nursing staff and once verified will review restart as appropriate. PHYSICAL EXAMINATION: GENERAL: This is a 63-year-old gentleman who is lying on the stretcher in the emergency room in no distress. VITAL SIGNS: Blood pressure is 111/76 with a heart rate of 68, respirations are 15, temperature is 98.1 degrees with room air saturations 95 to 97%. HEENT: Pupils are equal, round, react to light. EOMs are intact. Sclerae anicteric. Mucous membranes are moist. NECK: Supple with trachea midline. He has no JVD. CARDIOVASCULAR: Regular rate and rhythm. No murmurs. No S3. He has no lower extremity edema. Calves are nontender bilateral with peripheral pulses palpable x4 extremities. PULMONARY: Breath sounds are clear and distant most likely secondary to body habitus. Chest rises and falls symmetric with respiration. GASTROINTESTINAL: Abdomen large, soft, nontender, nondistended. Bowel sounds in all 4 quadrants. NEUROLOGIC: He is alert, oriented x3. SKIN: Warm and dry. LABS: WBC is 8.6 with hemoglobin 12.8, hematocrit 39.5, and platelets 294,000. Sodium 136, potassium 4.6, BUN 25, creatinine 0.9 with a glucose of 208. Troponins are negative on multiple occasions. Chest x-ray reveals negative exam. Lungs are normally expanded and clear. Heart size and mediastinal contours are normal. No pneumothorax or pleural effusion. EKG sinus rhythm at a rate of 83 with a right bundle branch block. No obvious ischemic changes. ASSESSMENT AND PLAN: 1. Chest pain. 2. Shortness of breath. 3. Right hand numbness which is resolved. 4. Right arm pain and numbness which is chronic. 5. Diabetes mellitus type 2. 6. Hypertension. 7. Benign prostatic hypertrophy. 8. Morbid obesity. PLAN: The patient will be admitted to the medical-surgical floor at [facility] and placed on telemetry. We will identify his home medications and continue as appropriate. pattern blood glucose with sliding scale insulin. trend troponins with an EKG in the morning CBC, CMP in am. diabetic diet. Oxygen as needed. Plan discussed with Dr. Ferreira. Further treatments pending hospital course. Dictated by ANDREW Plummer for Addis Ferreira MD cc: ANDREW Plummer MD [facility]
[2018-12-17] MEDS: HUMULIN R (PARKWAY) SUBQ SCH ×2 (18:42→21:21)
[2018-12-17] MEDS ORDERED: TYLENOL PO PRN (21:23)
[2018-12-18 02:52] LABS: BASO# 0.02 X1000 (0.0-0.2); BASO% 0.2 % (0.0-0.8); EOS# 0.12 X1000 (0.0-0.7); EOS% 1.5 % (0.0-10.0); HEMATOCRIT 40.1 % (42.0-52.0); HEMOGLOBIN 12.8 g/dL (14.0-18.0); IMM GRAN# 0.02 X1000 (0.0-0.04); IMM GRAN% 0.2 % (0.0-0.5); LYMPH# 2.76 X1000 (1.2-3.4); LYMPH% 34.4 % (20.5-51.1); MCH 28.9 PG (27-31); MCHC 31.9 g/dL (33-37); MCV 90.5 FL (81-99); MONO# 0.58 X1000 (0.11-0.59); MONO% 7.2 % (1.7-9.3); MPV 9.5 FL (7.4-10.4); NEUT# 4.52 X1000 (1.4-6.5); NEUT% 56.5 % (42.2-75.2); PLT 336 X1000 (130-400); RBC 4.43 XMIL (4.7-6.1); RDW 13.7 % (11.5-14.5); WBC 8.02 X1000 (4.8-10.8)
[2018-12-18 03:19] LABS: AGAP 10; ALBUMIN 3.9 g/dL (3.5-5.0); ALKALINE PHOSPHATASE 99 U/L (32-122); BUN 21 mg/dL (8-22); CALCIUM 8.6 mg/dL (8.8-10.2); CHLORIDE 101 mmol/L (98-107); COSMO 280; CREATININE 0.9 mg/dL (0.7-1.2); ESTIMATED GFR > 60; GLUCOSE 98 mg/dL (70-104); GOT 14 U/L (10-34); GPT 7 U/L (10-44); POTASSIUM 4.2 mmol/L (3.5-5.1); SODIUM 139 mmol/L (136-145); TCO2 28 mmol/L (25-35)
[2018-12-18 06:06] VITALS: BP 132/74
[2018-12-18] MEDS: HUMULIN R (PARKWAY) SUBQ SCH ×2 (06:23→12:01)
--- NOTE | 2018-12-18 06:29 | EKG Report ---
Test Performed on : 12/18/2018 06:24:12 AM Test Reason : dyspnea Blood Pressure : / mmHG Vent. Rate : 062 BPM Atrial Rate : 062 BPM P-R Int : 188 ms QRS Dur : 134 ms QT Int : 462 ms P-R-T Axes : 042 -43 051 degrees QTc Int : 468 ms Normal sinus rhythm. Left axis deviation Right bundle branch block Abnormal ECG When compared with ECG of 17-DEC-2018 12:02, (Unconfirmed) Nonspecific T wave abnormality no longer evident in Inferior leads Confirmed by Martinez Juarez MD ([id number]) on 12/29/2018 3:25:28 PM
[2018-12-18] MEDS ORDERED: CALTRATE 600 + D PO SCH (09:00)
[2018-12-18] MEDS ORDERED: GLUCOPHAGE PO SCH (09:00)
[2018-12-18] MEDS ORDERED: PRINIVIL PO SCH (09:00)
[2018-12-18] MEDS ORDERED: ASPIRIN EC PO SCH (09:00)
[2018-12-18] MEDS ORDERED: ZETIA PO SCH (09:00)
--- NOTE | 2018-12-18 14:50 | DISCHARGE SUMMARY ---
ADMISSION DATE: 12/17/2018 DISCHARGE DATE: 12/18/2018 DISCHARGE DIAGNOSIS: 1. Chest pain that is noncardiac. 2. Mild coronary artery disease. 3. Type 2 diabetes mellitus. 4. Hypertension. 5. Benign prostatic hypertrophy. 6. Morbid obesity. HOSPITAL COURSE: This is a 63-year-old gentleman who presents to the emergency room with complaint of having chest pain for which he took nitroglycerin that relieved his chest pain. He presented to the emergency department with this chest pain, but he has been evaluated by Cardiology in the recent past and had cardiac catheterization done in August 2018 at [facility] that showed left main coronary artery to be normal and the LAD had diffuse irregularities around 30% lesion. His circumflex showed 20% proximal disease and right coronary had proximal 30 to 40 percent disease. Ejection fraction was estimated at 60%. His cardiology has cleared him in the recent past and has told him that his chest pain has been noncardiac despite the fact that he has been having multiple visits to the emergency room with chest pains. He is currently asymptomatic and therefore we are going to discharge him home today. He is advised to follow up with PCP in about a week. DISCHARGE MEDICATIONS: 1. Aspirin 81 mg orally once daily. 2. Atorvastatin 40 mg orally once daily at bedtime. 3. Ezetimibe the MILE B 10 mg orally once daily. 4. Lisinopril 10 mg orally once daily. 5. Metformin 1000 mg orally twice daily. 6. Tamsulosin 0.4 mg orally once daily. 7. Ursodiol 300 mg orally twice daily. 8. Albuterol inhaler 2 puffs q. 6 hours as needed for wheezing and shortness of breath. 9. Humulin 70/30 to be injected as directed. FOLLOW-UP: Will follow with his PCP in approximately one week. CONDITION: Stable. DISPOSITION: Home. cc: Addis Ferreira MD
[2018-12-18] MEDS ORDERED: LIPITOR PO SCH (21:00)
[2018-12-18] MEDS ORDERED: FLOMAX PO SCH (21:00)
[2018-12-18] MEDS ORDERED: ACTIGALL PO SCH (21:00)
== END 2018-12-18 13:10 | disposition home or self-care (01) ==
LOC: P.ED 11:38 → P.MEDSURG 11:38
PROVIDERS: ATTEND Internal Medicine